=== PATIENT | female | born 1990 | race Caucasian/White ===

== ENCOUNTER 2019-04-09 14:45 | Inpatient (IN) ==
[2019-04-09] MEDS ORDERED: VANCOMYCIN CONSULT ACTIVE PRN ×2 (15:12→18:17)
[2019-04-09] MEDS ORDERED: VANCOMYCIN HCL 2,750 MG in SODIUM CHLORIDE 0.9% 500 ML IV ONE (15:12)
[2019-04-09] MEDS ORDERED: cefTRIAXone SODIUM 2,000 MG in DEXTROSE 5% 50 ML IV STA (15:12)
[2019-04-09] MEDS ORDERED: MoRPHine SULFATE 4 MG/ML 1 ML CARP\\VIAL IV STA (15:36)
--- NOTE | 2019-04-09 15:47 | XRay Report ---
XR chest 1V portable CLINICAL HISTORY: Sepsis COMPARISON STUDY: 02/11/2019 FINDINGS: The cardiac and mediastinal contours are normal. There is no evidence of focal pulmonary co nsolidation. There is no evidence of failure. No pleural effusions are visualized.[ IMPRESSION: No active disease in the chest. Electronically signed by: oTan Mauro M.D. 04/09/2019 3:46 PM
[2019-04-09 16:05] LABS: Partial Thromboplastin Ratio 0.9; Partial Thromboplastin Time 25.4 Seconds (21.0-31.0)
[2019-04-09 16:08] LABS: Alanine Aminotransferase 17 U/L (12-78); Albumin Level 3.4 gm/dl (3.4-5.0); Aspartate Aminotransferase 13 U/L (15-37); BUN Creatinine Ratio 12.8 (10-20); Blood Urea Nitrogen 10 mg/dl (7-18); Carbon Dioxide 26 mmol/L (21-32); Chloride 106 mmol/L (98-107); Creatinine Clr Calc Pharmacy 148.4 ml/min; Est GFR (African American) 117.1; Glucose 107 mg/dl (70-99); Hematocrit (blood only) 37.9 % (37-47); Hemoglobin 12.9 g/dL (12.0-16.0); Mean Corpuscular Volume 81.7 fL (80-100); Platelet Count 91 K/uL (130-400); Potassium 3.3 mmol/L (3.5-5.1); RDW Coefficient of Variation 13.8 % (11.5-14.5); RDW Standard Deviation 41.3 fL (36.4-46.3); Red Blood Count 4.64 M/uL (4.2-5.4); Sodium 139 mmol/L (136-145); White Blood Count 11.99 K/uL (4.8-10.8)
[2019-04-09 16:13] LABS: Albumin Globulin Ratio 0.8 (0.9-2); Alkaline Phosphatase 58 U/L (45-117); Bilirubin,Total 0.7 mg/dl (0.2-1); Globulin 4.2 gm/dl (2.5-4.0); Total Protein 7.6 gm/dl (6.4-8.2); Troponin I < 0.015 ng/ml (0-0.045)
[2019-04-09 16:15] LABS: Basophils # (auto) 0.01 K/uL (0-0.2); Basophils % (auto) 0.1 %; Eosinophils # (auto) 0.05 K/uL (0-0.5); Eosinophils % (auto) 0.4 %; Immature Granulocytes # (auto) 0.02 K/uL (0.00-0.02); Immature Granulocytes % (auto) 0.2 %; Lymphocytes # (auto) 2.05 K/uL (1.2-3.4); Lymphocytes % (auto) 17.1 %; Monocytes # (auto) 0.84 K/uL (0.11-0.59); Neutrophils # (auto) 9.02 K/uL (1.4-6.5); Neutrophils % (auto) 75.2 %
[2019-04-09] MEDS ORDERED: POTASSIUM CHLORIDE 10 MEQ TABCR PO STA (17:27)
--- NOTE | 2019-04-09 17:36 | History & Physical Report ---
Date of Service April 09, 2019 Assessment & Plan (1) Cellulitis: This is a 28-year-old female who has a significant past medical history of pre diabetes and morbid obesity who presents to [facility] ED secondary to right lower extremity cellulitis x2 days. In ED patient had wbc 11.9, H/H 12.9 and 37.9, platelet 91 CMP relatively unremarkable except potassium 3.3, glucose 107 Lactate 1.7 Patient did not meet SIRS/sepsis criteria Blood cultures drawn She was administered broad-spectrum IV antibiotics vancomycin and ceftriaxone Given failed outpatient treatment patient was recommended for admission Admit to med/surg Continue IV vancomycin and ceftriaxone dose per pharmacy gentle IVF NS given cellulitis/tachycardia CBC, BMP, ESR, CRP in a.m. Oxycodone 5 mg every 4 hours as needed for moderate pain; morphine 4 mg IV every 4 hours as needed severe pain No imaging of right lower extremity done at this time; however if no clinical improvement will order RLE x-ray along with venous Doppler Venous Doppler not ordered at this time secondary to patient unable to tolerate secondary to severe pain (2) Thrombocytopenia: per [facility] records low plt present on cbc since 2011 do not see any prior work up Last ER visit 01/2019 had peripheral smear consult which was reviewed would recommend close follow up with outpt provider or referral to hematology (3) Hypokalemia: 20 meq of KCL x1 Repeat BMP in am (4) Prediabetes: Prediabetes per patient Is on metformin as outpt We will hold metformin and monitor blood glucose level If BSG consistently elevated will implement as needed NovoLog Last noted A1c in [facility] 09/2018 5.3 (5) Morbid obesity with BMI of 50.0-59.9, adult: BMI 50.3 encourage lifestyle modifications (6) DVT prophylaxis: pt unable to tolerate SCDS/TEDS given cellulitis Encouraged ambulation monitor closely will not do chemical prophylaxis due to thrombocytopenia but assess need daily Disposition: discharge to home when able Follow up: PCP Dr. Schwartz upon discharge Patient was seen and examined in collaboration with Dr. Dacosta, please see addendum History of Present Illness Chief Complaint: Right lower extremely cellulitis x2 days. Primary Care Provider: Jessica Morgan PA-C This is a 28-year-old female who has a significant past medical history of pre diabetes and morbid obesity who presents to [facility] ED secondary to right lower extremity cellulitis x2 days. Significant other at bedside. She was initially seen in outpatient clinic on 04/08 secondary to redness of right lower extremity that began on Saturday 04/07. She was given IM ceftriaxone 1 g and started on Keflex 500 mg 4 times daily. She return to office today for follow-up and there was worsening of cellulitis therefore she was referred to ER. At office she had elevated temperature of 100.2. She complains of feeling feverish and sweats, diminished appetite, nausea, "excruciating right lower extremity pain." Pain is 10 out of 10. She tried anti-inflammatories without relief. Pain is so severe she is unable to walk or move the right lower leg. She denies any known insect/spider bites. She has history of right lower extremity cellulitis in January 2019 which did require ER visit. She was treated with IM ceftriaxone as well as oral Keflex with improvement of symptoms. She states it is much worse this time. She denies any recent travel. Positive family history of MRSA but no personal history. She denies any lightheadedness, dizziness, syncope, chest pain, shortness with, palpitations, emesis, abdominal pain, diarrhea, change in urination. Her last BM was approximately 3 days ago but overall feels her oral intake has been significantly diminished for the past 2 days. She is passing flatus. Allergies Allergy/AdvReac Type Severity Reaction Status Date / Time No Known Allergies Allergy Verified 04/09/19 15:35 Home Medications Home Medications Medication Instructions Recorded Confirmed Type desogestrel-ethinyl estradiol 1 tab PO DAILY 02/11/19 04/09/19 History [Enskyce] albuterol sulfate 2 puff INHALATION QID PRN 04/09/19 04/09/19 History hmtqziogal-tveaupjohrhnr-kpvg 1 tab PO Q4H PRN 04/09/19 04/09/19 History cephalexin 500 mg PO TID 04/09/19 04/09/19 History fluconazole 150 mg PO DIRECTED 04/09/19 04/09/19 History fluticasone propionate [Flonase 2 spray INTRANASAL DAILY 04/09/19 04/09/19 History Allergy Relief] ketorolac 10 mg PO QID PRN 04/09/19 04/09/19 History metformin 500 mg PO BIDM 04/09/19 04/09/19 History Past Med/Surg History Medical History Morbid obesity with BMI of 50.0-59.9, adult (Chronic) Asthma (Chronic) Thrombocytopenia (Chronic) Cellulitis (Acute) Prediabetes (Chronic) Surgical History No pertinent past surgical history (Chronic) Family History Mother Type 1 diabetes Hypertension Father Alive and well Other No pertinent family history Social History Preferred Language: Tunisian Communication Ability: Effective Visual Impairment: No Limitations Hearing Ability: Normal Beliefs That Will Affect Care: None Current Living Situation: Spouse Other Information That Helps Us Care for You: No Feels Safe at Home: Yes Safety Concerns: Feels Safe At This Time Smoking Status: Never smoker Do You Dip or Chew Tobacco: No Hx Alcohol Use: Yes Hx Substance Use: No Review of Systems Review of Systems: As noted per HPI, 10 systems reviewed and negative unless noted above. Physical Exam Physical Exam: Gen: WD/WN, morbidly obese, female, NAD, sitting up in bed, pleasant, conversing easily Head: Normocephalic, Atraumatic Eyes: Sclera normal, no conjunctival injection, PERRLA, EOMI ENT: Gross hearing intact, normal pharynx, mucous membranes moist Neck: supple, no adenopathy, No JVD, no bruit, Resp: Clear to auscultation b/l, no wheeze, rales, rhonchi. Normal insp/exp effort, no accessory muscle use CV: Regular rate, regular rhythm, no murmur, rub, gallop, or ectopy Abd: Obese abdomen, +BS x 4, soft, nontender, nondistended Musculoskeletal: moves extremities active rom x 4, strength intact, good optimization engineer strength Extremities: Significant right lower extremity edema, erythema, warmth, extending from dorsal aspect of right foot to tibial plateau. Area of hyperp igmentation located pretibially with vesicular-like lesions. No alec fluctuance or purulence or drainage. Left lower extremity exhibits no signs of erythema or swelling. Bilateral pedal pulses are +1 and equal. Significant pain to right lower extremity even with light touch. Decreased ROM to right foot and ankle due to pain. Skin: warm, moist, negative turgor, cap refill < 2sec Neuro: Alert and oriented x 3, speech normal, good mood/affect, cran nerve 2-12 intact grossly : deferred Results & Data Vital Signs (Past 12 Hours) Vital Signs Temp Pulse Resp BP Pulse Ox 04/09/19 16:31 86 26 H 109/63 97 04/09/19 16:02 89 20 140/81 98 04/09/19 15:12 99 04/09/19 14:51 37.0 C 111 H 20 138/80 99 Laboratory Results Short CBC 04/09/19 Range/Units 15:40 WBC 11.99 H (4.8-10.8) K/uL Hgb 12.9 (12.0-16.0) g/dL Hct 37.9 (37-47) % Plt Count 91 L (130-400) K/uL BMP 04/09/19 15:40 Sodium 139 Potassium 3.3 L Chloride 106 Carbon Dioxide 26 BUN 10 Creatinine 0.80 Glucose 107 H Calcium 9.0 Cardiac Enzymes 04/09/19 Range/Units 15:40 Troponin I < 0.015 (0-0.045) ng/ml Liver Function 04/09/19 Range/Units 15:40 Total Bilirubin 0.7 (0.2-1) mg/dl AST 13 L (15-37) U/L ALT 17 (12-78) U/L Alkaline Phosphatase 58 (45-117) U/L Albumin 3.4 (3.4-5.0) gm/dl Diagnostic Findings CXR: IMPRESSION: No active disease in the chest Medications Administered Vancomycin HCl 2,750 mg/ (Sodium Chloride) 555 mls @ 200 mls/hr IV NOW ONE; Protocol Stop: 04/09/19 18:02 Last Admin: 04/09/19 15:47 Dose: 200 mls/hr Documented by: [id number] Discontinued Medications Ceftriaxone Sodium 2,000 mg/ (Dextrose) 70 mls @ 100 mls/hr IV NOW STA Stop: 04/09/19 15:53 Last Infusion: 04/09/19 16:29 Dose: 0 mls/hr Documented by: [id number] Admin: 04/09/19 15:47 Dose: 100 mls/hr Documented by: [id number] Morphine Sulfate (Morphine Sulfate) 4 mg IV NOW STA Stop: 04/09/19 15:37 Last Admin: 04/09/19 15:48 Dose: 4 mg Documented by: [id number] Code Status & VTE Plan Code Status Full Code VTE Prophylaxis Plan VTE Prophylaxis will be ordered: No Reason for no VTE mechanical prophylaxis: Treatment not tolerated (pt with significant RLE pain; unable to tolerate mechanical prophylaxis) Supervising Physician Co-Signing Physician Notes Pt was seen and examined. Agreed with Svitlana MARRERO exam, assessment and Plan. 28-year-old female with past medical history of pre diabetes and morbid obesity presents to [facility] for right lower extremity cellulitis. Failed outpatient therapy with Keflex and received IM rocephin x1. Pt said that 2 weeks ago she had cellulitis in right LE that was treated with oral abx. She said that today right LE erythema and tenderness worsening. Received IV Rocephin and Vanco in the ER. Will continue IV rocephin and will add dapto IV. Blood cx collected in the ER pending. Continue monitor. Please refer to Svitlana documentation for other problems. MD Olesya (1) Cellulitis Laterality: right Site of cellulitis: extremity Site of cellulitis of extremity: lower extremity Qualified Code(s): L03.115 - Cellulitis of right lower limb
--- NOTE | 2019-04-09 17:58 | Emergency Department Note ---
Entered by Mily Coker acting as a scribe for History of Present Illness General Chief complaint: Infection Stated complaint: RT LEG INFECTION Source: patient Mode of arrival: ambulatory Limitations: no limitations History of Present Illness Onset (ago): day(s) 2 Location: lower extremity (right) Severity: similar to prior episodes (cellulitis) Pain Consistency: + other (worsening) Maximum Pain Intensity: 10 Associated symptoms: + fever/chills (The patient complains of a fever of 100.2 ), + rash and + other (The patient denies abdominal pain, diarrhea, tingling, and numbness. ); no chest pain, no nausea/vomiting and no shortness of breath The patient is a 28 year old female with a history of cellulitis who presents to the ED with complaints of a worsening infection that onset 2 days ago. The pat ient complains of right sided leg rash and a fever of 100.2 degrees. She notes that her rash is similar to an episode of cellulitis she had in the past. The patient denies chest pain, shortness of breath, abdominal pain, nausea, vomiting, diarrhea, tingling, and numbness. She denies recent swimming. The patient states that she was prescribed Keflex and Rocephin. No other exacerbating or remitting factors. Home Medications Home Medications Medication Instructions Recorded Confirmed Type desogestrel-ethinyl estradiol 1 tab PO DAILY 02/11/19 04/09/19 History [Enskyce] albuterol sulfate 2 puff INHALATION QID PRN 04/09/19 04/09/19 History pcvvfmvrqr-ebeehsqfbaawi-hhgv 1 tab PO Q4H PRN 04/09/19 04/09/19 History cephalexin 500 mg PO TID 04/09/19 04/09/19 History fluconazole 150 mg PO DIRECTED 04/09/19 04/09/19 History fluticasone propionate [Flonase 2 spray INTRANASAL DAILY 04/09/19 04/09/19 History Allergy Relief] ketorolac 10 mg PO QID PRN 04/09/19 04/09/19 History metformin 500 mg PO BIDM 04/09/19 04/09/19 History Allergies Allergy/AdvReac Type Severity Reaction Status Date / Time No Known Allergies Allergy Verified 04/09/19 15:35 Past Med/Surg History Medical History Asthma (Chronic) Thrombocytopenia (Chronic) Cellulitis (Acute) Prediabetes (Chronic) Surgical History No pertinent past surgical history (Chronic) Family History Mother Type 1 diabetes Hypertension Father Alive and well Other No pertinent family history Social History Preferred Language: Macanese Communication Ability: Effective Visual Impairment: No Limitations Hearing Ability: Normal Beliefs That Will Affect Care: None Current Living Situation: Spouse Other Information That Helps Us Care for You: No Feels Safe at Home: Yes Safety Concerns: Feels Safe At This Time Smoking Status: Never smoker Do You Dip or Chew Tobacco: No Hx Alcohol Use: Yes Hx Substance Use: No Review of Systems See HPI for pertinent positives & negatives. and A total of 10 systems reviewed and were otherwise negative Physical Exam Vital Signs Vital Signs - 24 hr 04/09/19 14:51 04/09/19 15:12 04/09/19 16:02 Temperature 37.0 C Temperature Source Oral Sepsis Recent Fever Within 48 Hours No Sepsis New/Unexplained Change in Mental Status No Sepsis Action Taken by Nursing No Action Required Pulse Rate 111 H 89 Pulse Rate from SpO2 Sensor 89 Respiratory Rate 20 20 Respiratory Depth Normal Blood Pressure 138/80 140/81 Blood Pressure Mean 99 100 Pulse Oximetry 99 99 98 Oxygen Delivery Method Room Air Room Air 04/09/19 16:31 04/09/19 16:32 04/09/19 17:00 Temperature Temperature Source Sepsis Recent Fever Within 48 Hours Sepsis New/Unexplained Change in Mental Status Sepsis Action Taken by Nursing Pulse Rate 86 92 H 95 H Pulse Rate from SpO2 Sensor 86 90 94 H Respiratory Rate 26 H 24 24 Respiratory Depth Blood Pressure 109/63 Blood Pressure Mean 78 Pulse Oximetry 97 98 97 Oxygen Delivery Method 04/09/19 17:09 04/09/19 17:30 04/09/19 17:40 Temperature Temperature Source Sepsis Recent Fever Within 48 Hours Sepsis New/Unexplained Change in Mental Status Sepsis Action Taken by Nursing Pulse Rate 91 H 102 H Pulse Rate from SpO2 Sensor 91 H 100 H Respiratory Rate 19 26 H Respiratory Depth Blood Pressure 119/77 Blood Pressure Mean 91 Pulse Oximetry 98 98 Oxygen Delivery Method Room Air GENERAL: Sitting up in bed, morbidly obese, disheveled, non-toxic. EYE EXAM: Normal conjunctiva. OROPHARYNX: no exudate, no erythema, lips, buccal mucosa, and tongue normal and mucous membranes are moist NECK: supple, no nuchal rigidity, no adenopathy, non-tender LUNGS: Clear to auscultation. Normal chest wall mechanics HEART: Distant murmurs, S1 normal and S2 normal, tachycardic ABDOMEN: abdomen soft, non-tender, normo-active bowel sounds, no masses, no rebound or guarding. BACK: Back is symmetrical on inspection and there is no deformity, no midline tenderness, no CVA tenderness. SKIN: Cellulitis UPPER EXTREMITIES: upper extremities are grossly normal. LOWER EXTREMITIES: Diffuse macular rash on the right 5th digit tracking over the foot to the arch and to the medial malleolus and up the leg. Some raised areas of fluctuance/clear fluid just above the distal ankle, midline with petechial wrapping upward and posteriorly to the mid-calf. Erythema tracking up to the mid knee and just medial to the knee. No crepitus. NEURO EXAM: Normal sensorium, cranial nerves II-XII grossly intact, normal speech, no gross weakness of arms, no gross weakness of legs. Course 1503: Past medical records reviewed. The patient was evaluated in room B7. A complete history and physical examination was performed. 1630: I reviewed the patient's case with Svitlana Claudio. She will evaluate the patient for further management. Consultations Consultation #1: 1630: I reviewed the patient's case with Svitlana Claudio. She will evaluate the patient for further management. Time: 16:30 Administered Medications Vancomycin HCl 2,750 mg/ (Sodium Chloride) 555 mls @ 200 mls/hr IV NOW ONE; Protocol Stop: 04/09/19 18:02 Last Admin: 04/09/19 15:47 Dose: 200 mls/hr Documented by: [id number] Discontinued Medications Ceftriaxone Sodium 2,000 mg/ (Dextrose) 70 mls @ 100 mls/hr IV NOW STA Stop: 04/09/19 15:53 Last Infusion: 04/09/19 16:29 Dose: 0 mls/hr Documented by: [id number] Admin: 04/09/19 15:47 Dose: 100 mls/hr Documented by: [id number] Morphine Sulfate (Morphine Sulfate) 4 mg IV NOW STA Stop: 04/09/19 15:37 Last Admin: 04/09/19 15:48 Dose: 4 mg Documented by: [id number] Potassium Chloride (Klor-Con M10) 20 meq PO NOW STA Stop: 04/09/19 17:28 Last Admin: 04/09/19 17:42 Dose: 20 meq Documented by: [id number] Medical Decision Making Differential Diagnosis Differential diagnosis Contact dermatitis, viral exanthem, urticaria, allergic reaction, Tolentino- Declan syndrome, toxic epidermal necrolysis, erythema multiforme, cellulitis, s cabies, HSV, varicella, zoster, eczema, staph scalded skin syndrome, fungal infection, as well as others were entertained. Medical Records Attestation: I reviewed the patient's medical records. Home Medications Current Medication List: was personally reviewed by me Laboratory Data Attestation: I reviewed the patient's lab results. Result diagrams: 04/09/19 15:40 04/09/19 15:40 Lab Results 04/09/19 04/09/19 04/09/19 Range/Units 15:40 15:40 15:40 WBC 11.99 H (4.8-10.8) K/uL RBC 4.64 (4.2-5.4) M/uL Hgb 12.9 (12.0-16.0) g/dL Hct 37.9 (37-47) % MCV 81.7 (80-100) fL MCH 27.8 (25-34) pg MCHC 34.0 (32-36) g/dL RDW Std Deviation 41.3 (36.4-46.3) fL RDW Coeff of Lucy 13.8 (11.5-14.5) % Plt Count 91 L (130-400) K/uL MPV 13.0 H (7.4-10.4) fL Immature Gran % (Auto) 0.2 % Neut % (Auto) 75.2 % Lymph % (Auto) 17.1 % Mcpherson % (Auto) 7.0 % Eos % (Auto) 0.4 % Baso % (Auto) 0.1 % Immature Gran # (Auto) 0.02 (0.00-0.02) K/uL Neut # (Auto) 9.02 H (1.4-6.5) K/uL Lymph # (Auto) 2.05 (1.2-3.4) K/uL Mcpherson # (Auto) 0.84 H (0.11-0.59) K/uL Eos # (Auto) 0.05 (0-0.5) K/uL Baso # (Auto) 0.01 (0-0.2) K/uL PT 10.0 (9.0-12.0) Seconds INR 1.0 (0.9-1.1) APTT 25.4 (21.0-31.0) Seconds PTT Ratio 0.9 Sodium 139 (136-145) mmol/L Potassium 3.3 L (3.5-5.1) mmol/L Chloride 106 (98-107) mmol/L Carbon Dioxide 26 (21-32) mmol/L Anion Gap 7.0 (3-11) BUN 10 (7-18) mg/dl Creatinine 0.80 (0.6-1.2) mg/dl Est Cr Clr Drug Dosing 148.4 ml/min Est GFR ( Amer) 117.1 Est GFR (Non-Af Amer) 101.0 BUN/Creatinine Ratio 12.8 (10-20) Glucose 107 H (70-99) mg/dl Lactate Calcium 9.0 (8.5-10.1) mg/dl Total Bilirubin 0.7 (0.2-1) mg/dl AST 13 L (15-37) U/L ALT 17 (12-78) U/L Alkaline Phosphatase 58 (45-117) U/L Troponin I < 0.015 (0-0.045) ng/ml Total Protein 7.6 (6.4-8.2) gm/dl Albumin 3.4 (3.4-5.0) gm/dl Globulin 4.2 H (2.5-4.0) gm/dl Albumin/Globulin Ratio 0.8 L (0.9-2) 04/09/19 04/09/19 Range/Units 15:40 17:06 WBC (4.8-10.8) K/uL RBC (4.2-5.4) M/uL Hgb (12.0-16.0) g/dL Hct (37-47) % MCV (80-100) fL MCH (25-34) pg MCHC (32-36) g/dL RDW Std Deviation (36.4-46.3) fL RDW Coeff of Lucy (11.5-14.5) % Plt Count (130-400) K/uL MPV (7.4-10.4) fL Immature Gran % (Auto) % Neut % (Auto) % Lymph % (Auto) % Mcpherson % (Auto) % Eos % (Auto) % Baso % (Auto) % Immature Gran # (Auto) (0.00-0.02) K/uL Neut # (Auto) (1.4-6.5) K/uL Lymph # (Auto) (1.2-3.4) K/uL Mcpherson # (Auto) (0.11-0.59) K/uL Eos # (Auto) (0-0.5) K/uL Baso # (Auto) (0-0.2) K/uL PT (9.0-12.0) Seconds INR (0.9-1.1) APTT (21.0-31.0) Seconds PTT Ratio Sodium (136-145) mmol/L Potassium (3.5-5.1) mmol/L Chloride (98-107) mmol/L Carbon Dioxide (21-32) mmol/L Anion Gap (3-11) BUN (7-18) mg/dl Creatinine (0.6-1.2) mg/dl Est Cr Clr Drug Dosing ml/min Est GFR ( Amer) Est GFR (Non-Af Amer) BUN/Creatinine Ratio (10-20) Glucose (70-99) mg/dl Lactate Cancelled 1.7 Calcium (8.5-10.1) mg/dl Total Bilirubin (0.2-1) mg/dl AST (15-37) U/L ALT (12-78) U/L Alkaline Phosphatase (45-117) U/L Troponin I (0-0.045) ng/ml Total Protein (6.4-8.2) gm/dl Albumin (3.4-5.0) gm/dl Globulin (2.5-4.0) gm/dl Albumin/Globulin Ratio (0.9-2) Imaging Data Radiologist's Impression: Radiology results as stated below per my review and the radiologist's interpretation: XR chest 1V portable CLINICAL HISTORY: Sepsis COMPARISON STUDY: 02/11/2019 FINDINGS: The cardiac and mediastinal contours are normal. There is no evidence of focal pulmonary consolidation. There is no evidence of failure. No pleural effusions are visualized.[ IMPRESSION: No active disease in the chest. Electronically signed by: Toan Mauro M.D. 04/09/2019 3:46 PM Dictated: 04/09/19 1545 Transcribed: 04/09/19 1545 Blood Pressure Blood Pressure Findings: Elevated blood pressure Blood Pressure Disposition: further management by hospitalist MDM Narrative Patient is a 28-year-old female who presents the ER for erythema swelling and tenderness on her right lower extremity. She was seen by her PCP and given IM Rocephin placed on oral Keflex and instructed to follow-up. The erythema is significantly worse and start tracking up her leg. IV was established and blood work was obtained and showed a mild tachycardia. Patient was afebrile but did have a slight low-grade fever as an outpatient. Labs show a leukocytosis of 12,000. No significant anemia. INR is unremarkable. BMP along with LFTs bilirubin and troponin was negative. Patient was given 2 g IV Rocephin due to her weight. She was given IV vancomycin. She is updated bedside. Discussed with the hospitalist patient was admitted for cellulitis of her right lower extremity. Impression & Plan Cellulitis, Hypokalemia Discharge Plan Visit Data Chief Complaint: Infection Stated Complaint: RT LEG INFECTION ED Provider: Geoff Mullen Discharge Problem: Cellulitis, Hypokalemia Patient Disposition: Being Evaluated by Hospitalist Forms Stand Alone Forms: [facility] Prescriptions Prescriptions: No Action desogestrel-ethinyl estradiol [Enskyce] 0.15-0.03 mg tablet 1 tab PO DAILY RF: 0 metformin 500 mg Tablet 500 mg PO BIDM RF: 0 fluconazole 150 mg Tablet 150 mg PO DIRECTED RF: 0 zhhedvtomv-ohlrgpzoblzfq-xhsy 50-325-40 mg Tablet 1 tab PO Q4H PRN (Reason: Headache) RF: 0 ketorolac 10 mg Tablet 10 mg PO QID PRN (Reason: Pain) RF: 0 cephalexin 500 mg capsule 500 mg PO TID RF: 0 albuterol sulfate 90 mcg/actuation HFA aerosol inhaler 2 puff inhalation QID PRN (Reason: Shortness Of Breath Or Wheezing) RF: 0 fluticasone propionate [Flonase Allergy Relief] 50 mcg/actuation [place],Suspension 2 spray INTRANASAL DAILY RF: 0 Referrals Referrals: Jessica Morgan PA-C [Primary Care Provider] - Discharge Problem: Cellulitis Qualifiers: Site of cellulitis: extremity Site of cellulitis of extremity: lower extremity Laterality: right Qualified Code(s): L03.115 - Cellulitis of right lower limb The scribe's documentation has been prepared under my direction and personally reviewed by me in its entirety. I confirm that the note above accurately reflects all work, treatment, procedures, and medical decision making performed by me.
[2019-04-09] MEDS ORDERED: DEXTROSE 50% 50 ML SYRINGE IV PRN (18:17)
[2019-04-09] MEDS ORDERED: MoRPHine SULFATE 4 MG/ML 1 ML CARP\\VIAL IV PRN (18:17)
[2019-04-09] MEDS ORDERED: POLYETHYLENE (MIRALAX) 17 GM PACK PO PRN (18:17)
[2019-04-09] MEDS ORDERED: GLUCOSE 10 TABS/TUBE PO PRN (18:17)
[2019-04-09] MEDS ORDERED: GLUCAGON FOR INJ 1 MG VIAL SQ PRN (18:17)
[2019-04-09] MEDS ORDERED: GLUCOSE 40% GEL 15 GM TUBE PO PRN (18:17)
[2019-04-09] MEDS ORDERED: ALUMINUM/MAGNESIUM SUSP 30 ML UDC PO PRN (18:17)
[2019-04-09] MEDS ORDERED: ACETAMINOPHEN 325 MG TAB PO PRN (18:17)
[2019-04-09] MEDS ORDERED: CARBOHYDRATES FOR HYPOGLYCEMIA PO PRN (18:17)
[2019-04-09] MEDS ORDERED: ALBUTEROL HFA 8 GM INHALER INH PRN (18:17)
[2019-04-09] MEDS ORDERED: MAGNESIUM HYDROXIDE SUSP 30 ML UDC PO PRN (18:17)
[2019-04-09] MEDS ORDERED: ONDANSETRON INJ 2 MG/ML 2 ML VIAL IV PRN (18:17)
[2019-04-09] MEDS ORDERED: DAPTOMYCIN CONSULT ACTIVE PRN (19:20)
[2019-04-09] MEDS: POTASSIUM CHLORIDE 10 MEQ in SODIUM CHLORIDE 0.9% 1000ML 1,000 ML IV SCH (19:21)
[2019-04-09 19:49] LABS: Appearance Urine Turbid (Clear); Bacteria Urine Automated Negative (Negative); Blood Urine Negative (Negative); Color Urine Dark Yellow; Epithelial Cell Urine Auto >30 /lpf (0-5); Glucose Urine UA Negative (Negative); Ketones Urine Trace (Negative); Leukocyte Esterase Urine Trace (Negative); Nitrite Urine Negative (Negative); Protein Urine Trace (Negative); Specific Gravity Urine 1.036 (1.000-1.030); Urobilinogen Urine Negative (Negative); pH Urine 5.5 (4.5-7.5)
[2019-04-09 19:57] LABS: Bilirubin Urine Negative (Negative); Ictotest Urine Negative (Negative)
[2019-04-09 20:13] LABS: Cast Urine Automated 0 /lpf (0-5); Mucus Urine Present (None Prsent)
[2019-04-09] MEDS: DAPTOmycin 375 MG in SYRINGE 0 ML IV SCH (21:24)
[2019-04-10] MEDS: OXYCODONE HCL IR 5 MG TAB (IMMEDIATE RELEASE) PO PRN ×3 (00:27→17:05)
[2019-04-10 07:05] LABS: BUN Creatinine Ratio 13.9 (10-20); C Reactive Protein 14.9 mg/dl (0-0.29); Calcium 8.4 mg/dl (8.5-10.1); Creatinine Clr Calc Pharmacy 160.4 ml/min; Est GFR (African American) 128.7; Hematocrit (blood only) 33.4 % (37-47); Hemoglobin 10.9 g/dL (12.0-16.0); Mean Corpuscular Hgb Conc 32.6 g/dL (32-36); Mean Corpuscular Volume 82.9 fL (80-100); Potassium 3.5 mmol/L (3.5-5.1); RDW Coefficient of Variation 13.8 % (11.5-14.5); Red Blood Count 4.03 M/uL (4.2-5.4); White Blood Count 8.27 K/uL (4.8-10.8)
[2019-04-10 07:11] LABS: Basophils # (auto) 0.01 K/uL (0-0.2); Basophils % (auto) 0.1 %; Eosinophils % (auto) 1.2 %; Giant Platelets 1+; Immature Granulocytes # (auto) 0.02 K/uL (0.00-0.02); Immature Granulocytes % (auto) 0.2 %; Lymphocytes # (auto) 2.64 K/uL (1.2-3.4); Lymphocytes % (auto) 31.9 %; Mean Platelet Volume 13.5 fL (7.4-10.4); Monocytes # (auto) 0.77 K/uL (0.11-0.59); Monocytes % (auto) 9.3 %; Neutrophils # (auto) 4.73 K/uL (1.4-6.5); Neutrophils % (auto) 57.3 %; Platelet Count 90 K/uL (130-400); Platelet Estimate Decreased (Normal)
[2019-04-10] MEDS: POTASSIUM CHLORIDE 10 MEQ in SODIUM CHLORIDE 0.9% 1000ML 1,000 ML IV SCH (07:16)
[2019-04-10] MEDS: cefTRIAXone SODIUM 2,000 MG in DEXTROSE 5% 50 ML IV SCH (09:20)
[2019-04-10] MEDS: FLUTICASONE PROPIONATE NA SPR 16 GM BTL SCH (11:44)
--- NOTE | 2019-04-10 15:10 | Hospitalist Progress Note ---
Date of Service April 10, 2019 Assessment & Plan (1) Cellulitis: Patient is a 28 yr female who with H/O prediabetes, morbid obesity who presents to [facility] ED secondary to right lower extremity cellulitis x2 days. Right Leg Cellulitis Denies any Trauma, Insect bite No signs of Sepsis Failed outpatient Abx therapy Blood cultures:pending Continue IV Daptomycin and ceftriaxone IV fluids Pain control Consider Venous Doppler/X ray if clinically no improvement (2) Thrombocytopenia: Chronic thrombocytopenia: Noted since 2011 Needs further work up as outpatient Monitor CBC No bleeding issues (3) Hypokalemia: Replace electrolytes as needed (4) Prediabetes: Prediabetes per patient On metformin as outpt Hold PO meds Last noted A1c in epic 09/2018 5.3 Consider ISS if BGs elevated (5) Morbid obesity with BMI of 50.0-59.9, adult: BMI 50.3 encourage lifestyle modifications (6) DVT prophylaxis: unable to tolerate SCDS/TEDS given cellulitis Encouraged ambulation No chemical prophylaxis Re: thrombocytopenia Disposition: Expect to discharge home when stable Subjective Patient seen and examined at bedside Complains of right lower extremity swelling, erythema, pain. Denies any chest pain, shortness of breath, dizziness, nausea, abdominal pain Right lower extremity erythema, pain improving No other complaints Review of Systems Review of Systems: All systems reviewed & are unremarkable except as noted in HPI & below Physical Exam Physical Exam: Physical Exam: Vitals signs as noted above General Appearance:Morbidly Obese, no apparent distress Head: normocephalic, Atraumatic Eyes: normal inspection, EOMI Neck: supple, Trachea midline Respiratory/Chest: Normal breath sounds, CTA Cardiovascular: S1, S2, No murmur Abdomen/GI:Soft, Non tender, Bowel sounds present Extremities/Musculoskelatal:normal inspection, RLE swelling, erythema, warmth, vascular lesions noted Neurologic/Psych:AAOX3, grossly no focal neurological deficits Skin: normal color, warm Results & Data Vital Signs (Past 12 Hours) Vital Signs Temp Pulse Resp BP Pulse Ox 04/10/19 14:44 36.8 C 79 18 128/79 98 04/10/19 07:20 37.0 C 77 18 131/78 97 Laboratory Results Short CBC 04/09/19 04/10/19 Range/Units 15:40 05:42 WBC 11.99 H 8.27 (4.8-10.8) K/uL Hgb 12.9 10.9 L (12.0-16.0) g/dL Hct 37.9 33.4 L (37-47) % Plt Count 91 L 90 L (130-400) K/uL BMP 04/09/19 04/10/19 15:40 05:42 Sodium 139 138 Potassium 3.3 L 3.5 Chloride 106 108 H Carbon Dioxide 26 23 BUN 10 10 Creatinine 0.80 0.74 Glucose 107 H 79 Calcium 9.0 8.4 L Cardiac Enzymes 04/09/19 Range/Units 15:40 Troponin I < 0.015 (0-0.045) ng/ml Liver Function 04/09/19 Range/Units 15:40 Total Bilirubin 0.7 (0.2-1) mg/dl AST 13 L (15-37) U/L ALT 17 (12-78) U/L Alkaline Phosphatase 58 (45-117) U/L Albumin 3.4 (3.4-5.0) gm/dl Urine 04/09/19 Range/Units 19:40 Urine Color Dark Yellow Urine Appearance Turbid A (Clear) Urine pH 5.5 (4.5-7.5) Ur Specific [place] 1.036 H (1.000-1.030) Urine Protein Trace H (Negative) Urine Glucose (UA) Negative (Negative) (1) Cellulitis Laterality: right Site of cellulitis: extremity Site of cellulitis of extremity: lower extremity Qualified Code(s): L03.115 - Cellulitis of right lower limb
[2019-04-10] MEDS: DAPTOmycin 375 MG in SYRINGE 0 ML IV SCH (21:07)
[2019-04-11 06:12] LABS: Hematocrit (blood only) 32.4 % (37-47); Hemoglobin 10.6 g/dL (12.0-16.0); Mean Corpuscular Hgb Conc 32.7 g/dL (32-36); Mean Corpuscular Volume 81.4 fL (80-100); Mean Platelet Volume 12.8 fL (7.4-10.4); Platelet Count 112 K/uL (130-400); RDW Coefficient of Variation 13.6 % (11.5-14.5); Red Blood Count 3.98 M/uL (4.2-5.4); White Blood Count 7.16 K/uL (4.8-10.8)
[2019-04-11 06:48] LABS: BUN Creatinine Ratio 11.2 (10-20); Calcium 8.6 mg/dl (8.5-10.1); Creatinine Clr Calc Pharmacy 174.6 ml/min; Est GFR (African American) 138.9; Est GFR (Non-African American) 119.9; Potassium 3.8 mmol/L (3.5-5.1)
[2019-04-11] MEDS: FLUTICASONE PROPIONATE NA SPR 16 GM BTL SCH (09:04)
[2019-04-11] MEDS: cefTRIAXone SODIUM 2,000 MG in DEXTROSE 5% 50 ML IV SCH (09:07)
--- NOTE | 2019-04-11 12:54 | Hospitalist Progress Note ---
Date of Service April 11, 2019 Assessment & Plan (1) Cellulitis: Patient is a 28 yr female who with H/O prediabetes, morbid obesity who presents to [facility] ED secondary to right lower extremity cellulitis x2 days. Right Leg Cellulitis Denies any Trauma, Insect bite No signs of Sepsis Failed outpatient Abx therapy Blood cultures:No growth to date Continue IV Daptomycin and ceftriaxone IV fluids discontinued Pain is controlled Consider Venous Doppler once pain is better Clinically improving (2) Thrombocytopenia: Chronic thrombocytopenia: Noted since 2011 Needs further work up as outpatient Monitor CBC No bleeding issues (3) Hypokalemia: Resolved Replace electrolytes as needed (4) Prediabetes: Prediabetes per patient On metformin as outpt Hold PO meds Last noted A1c in epic 09/2018 5.3 Consider ISS if BGs elevated (5) Morbid obesity with BMI of 50.0-59.9, adult: BMI 50.3 encourage lifestyle modifications (6) DVT prophylaxis: unable to tolerate SCDS/TEDS given cellulitis Encouraged ambulation No chemical prophylaxis Re: thrombocytopenia Disposition: Expect to discharge home when stable Subjective Patient seen and examined at bedside Right leg pain, erythema is improving. No new complaints Afebrile Denies any chest pain, shortness of breath, dizziness, nausea, abdominal pain Review of Systems Review of Systems: All systems reviewed & are unremarkable except as noted in HPI & below Physical Exam Physical Exam: Physical Exam: Vitals signs as noted above General Appearance:Morbidly Obese, no apparent distress Head: normocephalic, Atraumatic Eyes: normal inspection, EOMI Neck: supple, Trachea midline Respiratory/Chest: Normal breath sounds, CTA Cardiovascular: S1, S2, No murmur Abdomen/GI:Soft, Non tender, Bowel sounds present Extremities/Musculoskelatal:normal inspection, RLE swelling, erythema, warmth, vesicular lesions noted Erythema is improving Neurologic/Psych:AAOX3, grossly no focal neurological deficits Skin: normal color, warm Results & Data Vital Signs (Past 12 Hours) Vital Signs Temp Pulse Resp BP Pulse Ox 04/11/19 07:23 36.8 C 69 18 127/68 100 Laboratory Results Short CBC 04/11/19 Range/Units 05:31 WBC 7.16 (4.8-10.8) K/uL Hgb 10.6 L (12.0-16.0) g/dL Hct 32.4 L (37-47) % Plt Count 112 L (130-400) K/uL BMP 04/11/19 05:31 Sodium 143 Potassium 3.8 Chloride 111 H Carbon Dioxide 25 BUN 8 Creatinine 0.68 Glucose 88 Calcium 8.6 (1) Cellulitis Laterality: right Site of cellulitis: extremity Site of cellulitis of extremity: lower extremity Qualified Code(s): L03.115 - Cellulitis of right lower limb
[2019-04-11] MEDS: OXYCODONE HCL IR 5 MG TAB (IMMEDIATE RELEASE) PO PRN ×2 (15:44→22:01)
[2019-04-11] MEDS: DAPTOmycin 375 MG in SYRINGE 0 ML IV SCH (22:02)
[2019-04-11] MEDS ORDERED: POLYETHYLENE (MIRALAX) 17 GM PACK PO PRN (23:42)
[2019-04-11] MEDS ORDERED: POLYETHYLENE (MIRALAX) 17 GM PACK PO STA (23:42)
[2019-04-12] MEDS: DOCUSATE SODIUM/SENNA 50/8.6MG TAB PO SCH ×2 (00:37→08:14)
[2019-04-12 06:35] LABS: Creatinine Clr Calc Pharmacy 162.6 ml/min; Est GFR (African American) 130.8; Est GFR (Non-African American) 112.9
[2019-04-12] MEDS: cefTRIAXone SODIUM 2,000 MG in DEXTROSE 5% 50 ML IV SCH (08:13)
[2019-04-12] MEDS: FLUTICASONE PROPIONATE NA SPR 16 GM BTL SCH (08:14)
[2019-04-12] MEDS ORDERED: PATIENT'S OWN ORAL CONTRACEPTIVE PO SCH (09:00)
--- NOTE | 2019-04-12 09:35 | Ultrasound Report ---
US venous doppler LE BI CLINICAL HISTORY: Lower extremity edema. Sepsis. COMPARISON STUDY: No previous studies for comparison. FINDINGS: Real-time and color flow Doppler imaging were performed. Flow was seen within the femoral, popliteal and calf veins with no intraluminal thrombus demonstrated. The saphenous vein is patent. IMPRESSION: No evidence of lower extremity DVT. Electronically signed by: Toan Mauro M.D. 04/12/2019 9:34 AM
--- NOTE | 2019-04-12 11:11 | Hospitalist Progress Note ---
Date of Service April 12, 2019 Assessment & Plan (1) Cellulitis: Patient is a 28 yr female who with H/O prediabetes, morbid obesity who presents to [facility] ED secondary to right lower extremity cellulitis x2 days. Right Leg Cellulitis Denies any Trauma, Insect bite No signs of Sepsis Failed outpatient Abx therapy Blood cultures:No growth to date for 48 hours Venous Doppler:No evidence of lower extremity DVT. Continue IV Daptomycin and ceftriaxone Day #4 IV fluids discontinued Pain is controlled Clinically improved (2) Thrombocytopenia: Chronic thrombocytopenia: Noted since 2011 Needs further work up as outpatient Monitor CBC No bleeding issues (3) Hypokalemia: Resolved Replace electrolytes as needed (4) Prediabetes: Prediabetes per patient On metformin as outpt Hold PO meds Last noted A1c in [facility] 09/2018 5.3 Consider ISS if BGs elevated (5) Morbid obesity with BMI of 50.0-59.9, adult: BMI 50.3 encourage lifestyle modifications Constipation: Continue bowel regimen (6) DVT prophylaxis: unable to tolerate SCDS/TEDS given cellulitis Encouraged ambulation No chemical prophylaxis Re: thrombocytopenia Disposition: Expect to discharge home when stable Subjective Patient seen and examined at bedside Clinically much improved Less Right leg pain, erythema Encourage to ambulate No other complaints Afebrile Denies any chest pain, shortness of breath, dizziness, nausea, abdominal pain Reports constipation Review of Systems Review of Systems: All systems reviewed & are unremarkable except as noted in HPI & below Physical Exam Physical Exam: Physical Exam: Vitals signs as noted above General Appearance:Morbidly Obese, no apparent distress Head: normocephalic, Atraumatic Eyes: normal inspection, EOMI Neck: supple, Trachea midline Respiratory/Chest: Normal breath sounds, CTA Cardiovascular: S1, S2, No murmur Abdomen/GI:Soft, Non tender, Bowel sounds present Extremities/Musculoskelatal:normal inspection, RLE swelling, erythema improved Neurologic/Psych:AAOX3, grossly no focal neurological deficits Skin: normal color, warm Results & Data Vital Signs (Past 12 Hours) Vital Signs Temp Pulse Resp BP Pulse Ox 04/12/19 11:00 36.9 C 71 18 97/65 L 97 04/12/19 07:00 36.9 C 71 18 97/65 L 97 04/12/19 00:00 37.0 C 79 20 126/84 97 Laboratory Results [facility] 04/12/19 05:45 Creatinine 0.73 (1) Cellulitis Laterality: right Site of cellulitis: extremity Site of cellulitis of extremity: lower extremity Qualified Code(s): L03.115 - Cellulitis of right lower limb
--- NOTE | 2019-04-12 11:40 | Discharge Summary ---
Date of Service April 12, 2019 Admission HPI Per Admitting Provider This is a 28-year-old female who has a significant past medical history of pre diabetes and morbid obesity who presents to [facility] ED secondary to right lower extremity cellulitis x2 days. Significant other at bedside. She was initially seen in outpatient clinic on 04/08 secondary to redness of right lower extremity that began on Saturday 04/07. She was given IM ceftriaxone 1 g and started on Keflex 500 mg 4 times daily. She return to office today for follow-up and there was worsening of cellulitis therefore she was referred to ER. At office she had elevated temperature of 100.2. She compl ains of feeling feverish and sweats, diminished appetite, nausea, "excruciating right lower extremity pain." Pain is 10 out of 10. She tried anti- inflammatories without relief. Pain is so severe she is unable to walk or move the right lower leg. She denies any known insect/spider bites. She has history of right lower extremity cellulitis in January 2019 which did require ER visit. She was treated with IM ceftriaxone as well as oral Keflex with improvement of symptoms. She states it is much worse this time. She denies any recent travel. Positive family history of MRSA but no personal history. She denies any lightheadedness, dizziness, syncope, chest pain, shortness with, palpitations, emesis, abdominal pain, diarrhea, change in urination. Her last BM was approximately 3 days ago but overall feels her oral intake has been significantly diminished for the past 2 days. She is passing flatus. Admission Exam Per Admitting Provider Gen: WD/WN, morbidly obese, female, NAD, sitting up in bed, pleasant, conversing easily Head: Normocephalic, Atraumatic Eyes: Sclera normal, no conjunctival injection, PERRLA, EOMI ENT: Gross hearing intact, normal pharynx, mucous membranes moist Neck: supple, no adenopathy, No JVD, no bruit, Resp: Clear to auscultation b/l, no wheeze, rales, rhonchi. Normal insp/exp eff ort, no accessory muscle use CV: Regular rate, regular rhythm, no murmur, rub, gallop, or ectopy Abd: Obese abdomen, +BS x 4, soft, nontender, nondistended Musculoskeletal: moves extremities active rom x 4, strength intact, good special education associate strength Extremities: Significant right lower extremity edema, erythema, warmth, extending from dorsal aspect of right foot to tibial plateau. Area of hyperpigmentation located pretibially with vesicular-like lesions. No alec fluctuance or purulence or drainage. Left lower extremity exhibits no signs of erythema or swelling. Bilateral pedal pulses are +1 and equal. Significant pain to right lower extremity even with light touch. Decreased ROM to right foot and ankle due to pain. Skin: warm, moist, negative turgor, cap refill < 2sec Neuro: Alert and oriented x 3, speech normal, good mood/affect, cran nerve 2-12 intact grossly : deferred Principal Diagnosis Discharge Information Discharge Diagnosis Right Leg Cellulitis Thrombocytopenia Discharge Goals Decrease discomfort,Improve disease control, Improve function Discharge Activity Limitations Resume your previous activity Discharge Data Allergies Allergy/AdvReac Type Severity Reaction Status Date / Time No Known Allergies Allergy Verified 04/09/19 15:35 Procedures Performed Venous Doppler: No evidence of lower extremity DVT. CXR: No active disease in the chest. Ordered Studies 04/12/19 08:27 US venous doppler LE Routine Hospital Course (1) Cellulitis: Patient is a 28 yr female who with H/O prediabetes, morbid obesity who presents to [facility] ED secondary to right lower extremity cellulitis x2 days. Right Leg Cellulitis Denies any Trauma, Insect bite No signs of Sepsis Failed outpatient Abx therapy Blood cultures:No growth to date for 48 hours Venous Doppler:No evidence of lower extremity DVT. Continue IV Daptomycin and ceftriaxone Day #4 IV fluids discontinued Pain is controlled Clinically improved (2) Thrombocytopenia: Chronic thrombocytopenia: Noted since 2011 Needs further work up as outpatient Monitor CBC No bleeding issues (3) Hypokalemia: Resolved Replace electrolytes as needed (4) Prediabetes: Prediabetes per patient On metformin as outpt Hold PO meds Last noted A1c in [facility] 09/2018 5.3 Consider ISS if BGs elevated (5) Morbid obesity with BMI of 50.0-59.9, adult: BMI 50.3 encourage lifestyle modifications Constipation: Continue bowel regimen (6) DVT prophylaxis: unable to tolerate SCDS/TEDS given cellulitis Encouraged ambulation No chemical prophylaxis Re: thrombocytopenia Disposition: Expect to discharge home when stable Total Time Total Time Spent Total Time Spent (In Minutes): 38 minutes Total Time Includes: Examination of the Patient, Discharge Planning, Medication Reconciliation and Other Discharge Plan Discharge Items Patient Disposition: Home - Self-Care Reason For Visit: CELLUITIS FAILED OUTPT THERAPY Discharge Diagnosis: Right Leg Cellulitis Thrombocytopenia Discharge Goals: Decrease discomfort, Improve disease control and Improve functi on Activity: Resume your previous activity Exercise/Sports: Gradually increase as tolerated Non-emergency contact: Primary Care Provider Call non-emergency contact if: you have any medication questions, your symptoms worsen, your pain is not controlled, your pain is worsening, your pain is unusu al for you, your pain is concerning for you and you have a fever Follow-up/Referrals: Jessica Morgan PA-C [Primary Care Provider] - Diet: Carb Consistent or DM2 and Heart Healthy Addtl Provider Instructions: Follow up with your PCP in 1 week as advised Your Platelet count is noted to be lower than normal. Discuss with your Phy sician for further work up as outpatient Complete the antibiotic course as prescribed Seek immediate medical attention if your symptoms reoccur or worsen Prescriptions: New polyethylene glycol 3350 [Miralax] 17 gram Powder In Packet 17 g PO DAILY PRN (Reason: constipation) 30 Days Qty: 30 RF: 0 docusate sodium [Colace] 100 mg capsule 100 mg PO BID Qty: 30 RF: 0 doxycycline hyclate 100 mg tablet 100 mg PO BID 7 Days Qty: 14 RF: 0 cefdinir 300 mg capsule 300 mg PO BID 7 Days Qty: 14 RF: 0 Continued desogestrel-ethinyl estradiol [Enskyce] 0.15-0.03 mg tablet 1 tab PO DAILY RF: 0 metformin 500 mg Tablet 500 mg PO BIDM RF: 0 fluconazole 150 mg Tablet 150 mg PO DIRECTED RF: 0 cybauaqakd-luccqdnjpvjit-pgzl 50-325-40 mg Tablet 1 tab PO Q4H PRN (Reason: Headache) RF: 0 ketorolac 10 mg Tablet 10 mg PO QID PRN (Reason: Pain) RF: 0 albuterol sulfate 90 mcg/actuation HFA aerosol inhaler 2 puff inhalation QID PRN (Reason: Shortness Of Breath Or Wheezing) RF: 0 fluticasone propionate [Flonase Allergy Relief] 50 mcg/actuation [place],Suspension 2 spray INTRANASAL DAILY RF: 0 Discontinued cephalexin 500 mg capsule 500 mg PO TID RF: 0 Stand-Alone Forms: [facility], Work/School Release (Inpt) Discharge Orders: Discharge Order (Routine); Ordered 04/12/19 Ordered By: Sylvain Olivares Admission Data Admit Date/Time: 04/09/19 17:25 Attending Provider: Sylvain Olivares Admit Provider: Xander Dacosta Primary Care Provider: Jessica Morgan Service: Medical Other Interventions: Discharge Summary Assessment (RN) Last Done: 04/12/19 11:00 DC Date/Time DO NOT enter until pt leaves facility: 04/12/19 13:15
== END 2019-04-12 13:15 | disposition home or self-care (01) | DRG 603 ==
LOC: ED 14:45 → 4E 17:25

== ENCOUNTER 2020-06-10 07:08 | Inpatient (IN) ==
[2020-06-10] MEDS ORDERED: DINOPROSTONE 10 MG INSERT PV ONE (09:05)
[2020-06-10] MEDS ORDERED: LACTATED RINGER'S 1,000 ML IV PRN (09:05)
[2020-06-10] MEDS ORDERED: OXYTOCIN 30 UNITS/500 ML BAG IV PRN (09:05)
[2020-06-10 09:10] LABS: Albumin Level 2.5 gm/dl (3.4-5.0); BUN Creatinine Ratio 13.2 (10-20); Calcium 8.9 mg/dl (8.5-10.1); Creatinine Clr Calc Pharmacy 161.3 ml/min; Est GFR (African American) 123.7; Est GFR (Non-African American) 106.8; INR 0.9 (0.9-1.1); Partial Thromboplastin Ratio 0.8; Partial Thromboplastin Time 22.2 Seconds (21.0-31.0); Potassium 3.5 mmol/L (3.5-5.1)
[2020-06-10 09:13] LABS: Albumin Globulin Ratio 0.7 (0.9-2); Bilirubin,Total 0.3 mg/dl (0.2-1); Globulin 3.4 gm/dl (2.5-4.0); Total Protein 5.9 gm/dl (6.4-8.2)
[2020-06-10 09:24] LABS: Hematocrit (blood only) 37.2 % (37-47); Hemoglobin 12.5 g/dL (12.0-16.0); Mean Corpuscular Hemoglobin 27.7 pg (25-34); Mean Corpuscular Hgb Conc 33.6 g/dL (32-36); Mean Corpuscular Volume 82.5 fL (80-100); Platelet Count 79 K/uL (130-400); RDW Coefficient of Variation 14.2 % (11.5-14.5); RDW Standard Deviation 42.9 fL (36.4-46.3); Red Blood Count 4.51 M/uL (4.2-5.4)
[2020-06-10 09:25] LABS: Basophils # (auto) 0.01 K/uL (0-0.2); Basophils % (auto) 0.1 %; Eosinophils # (auto) 0.01 K/uL (0-0.5); Eosinophils % (auto) 0.1 %; Immature Granulocytes # (auto) 0.12 K/uL (0.00-0.02); Immature Granulocytes % (auto) 0.8 %; Lymphocytes # (auto) 3.26 K/uL (1.2-3.4); Lymphocytes % (auto) 22.6 %; Monocytes # (auto) 1.05 K/uL (0.11-0.59); Monocytes % (auto) 7.3 %; Neutrophils # (auto) 9.95 K/uL (1.4-6.5); Neutrophils % (auto) 69.1 %; Platelet Estimate Decreased (Normal)
--- NOTE | 2020-06-10 10:05 | Obstetrical Progress Note ---
Date of Service June 10, 2020 Assessment & Plan Admission and Anticipated Discharge Date Admission Date: June 10, 2020 Physical Exam Constitutional: WD/WN, vitals as above average body habitus and + morbidly obese Genitourinary: Manual OB Exam: + cervical dilation (closed), + cervical effacement (thick) and + station high OB Exam Monitor Tracing: + external FHT monitor used, + category I and + normal FHT variability Cervidil 10 mg placed vaginally for cervical ripening Results & Data ([facility]) Vital Signs (Past 12 Hours) Vital Signs Temp Pulse Resp BP 06/10/20 09:50 80 118/56 L 06/10/20 07:47 36.9 C 20 06/10/20 07:26 36.9 C 75 20 120/70
[2020-06-11] MEDS: miSOPROStoL 50 MCG TAB PO SCH ×5 (00:01→17:45)
[2020-06-11 07:15] LABS: Hematocrit (blood only) 38.5 % (37-47); Hemoglobin 12.7 g/dL (12.0-16.0); Mean Corpuscular Hemoglobin 27.8 pg (25-34); Mean Corpuscular Volume 84.2 fL (80-100); RDW Coefficient of Variation 14.3 % (11.5-14.5); RDW Standard Deviation 44.4 fL (36.4-46.3); Red Blood Count 4.57 M/uL (4.2-5.4)
[2020-06-11 07:36] LABS: Platelet Count 89 K/uL (130-400)
[2020-06-11 07:37] LABS: Basophils # (auto) 0.01 K/uL (0-0.2); Basophils % (auto) 0.1 %; Eosinophils # (auto) 0.09 K/uL (0-0.5); Eosinophils % (auto) 0.8 %; Immature Granulocytes # (auto) 0.12 K/uL (0.00-0.02); Immature Granulocytes % (auto) 1.1 %; Lymphocytes # (auto) 3.41 K/uL (1.2-3.4); Lymphocytes % (auto) 29.9 %; Monocytes # (auto) 0.95 K/uL (0.11-0.59); Monocytes % (auto) 8.3 %; Neutrophils # (auto) 6.82 K/uL (1.4-6.5); Neutrophils % (auto) 59.8 %; Platelet Estimate Decreased (Normal)
--- NOTE | 2020-06-11 09:58 | History & Physical Report ---
Date of Service June 11, 2020 Assessment & Plan (1) Morbid obesity with BMI of 50.0-59.9, adult: Patient is a 29-year-old G1, P0 at 39 weeks and 5 days of gestation admitted yesterday for induction of labor at term due to morbid obesity, history of thrombocytopenia, chronic ITP, followed by hematology, status post 4 days of Decadron with increasing platelet numbers. Vital signs stable afebrile heart rate reassuring GBS negative Cervix unfavorable Discussed options with continuing with cervical ripening, Cervidil, p.o. Cytotec and Shabazz balloon insertion. Patient is hesitant to have speculum exam with Shabazz balloon. She was told she may not be given epidural due to her low pl atelets numbers. I spoke with anesthesiologist Dr. Sapp, he will come up and talk to the patient about options of pain management. I spoke with Dr. Decker from hematology he was happy with increasing numbers, he stated 89K would be okay for epidural and or and call him if numbers go down. All questions were answered. (2) Thrombocytopenia: (3) Elective induction of labor planned: Admission and Anticipated Discharge Date Admission Date: June 10, 2020 History of Present Illness Primary Care Provider: Jessica Morgan PA-C Patient is seen and examined. Patient feels well no complaints, has been feeling mild and irregular contractions. No leakage of fluid or vaginal bleeding, baby has been moving well. I reviewed her records and she was known to me from office. She was admitted by Dr. Veras yesterday for induction of labor for obesity. Received Cytotec per vagina yesterday and 2 doses of oral Cytotec today. 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, low platelets, from 50 -100K, todays 89K 2) Morbid obesity 3) depression 4) insulin resistance 5) Cellulitis of legs, diffuse rash, PUUPPS Allergies Allergy/AdvReac Type Severity Reaction Status Date / Time No Known Allergies Allergy Verified 06/10/20 08:35 Home Medications Home Medications Medication Instructions Recorded Confirmed Type prenat.vits,valentina,fen-gyyo-mmbms 1 tab PO DAILY 06/10/20 06/10/20 History [ Vitamin] Patient History Medical History Asthma Cellulitis Morbid obesity with BMI of 50.0-59.9, adult Prediabetes Thrombocytopenia Surgical History No pertinent past surgical history Family History Mother Type 1 diabetes Hypertension Father Alive and well Other No pertinent family history Social History Smoking Status: Never smoker Hx Alcohol Use: Yes Hx Substance Use: No Preferred Language: Pakistani Communication Ability: Effective Visual Impairment: No Limitations Hearing Ability: Normal Beliefs That Will Affect Care: None marital status: Current Living Situation: Spouse Other Information That Helps Us Care for You: No Feels Safe at Home: Yes Safety Concerns: Feels Safe At This Time Physical Exam Constitutional: WD/WN, vitals as above well developed, well nourished and + morbidly obese NAD Genitourinary: normal external appearance Manual OB Exam: + cervical dilation fingertip, + cervical effacement 50% and + station high OB Exam Monitor Tracing: + external uterine monitor used and + category I Results & Data ([facility]) Vital Signs (Past 12 Hours) Vital Signs Temp Pulse Resp BP 06/11/20 07:05 37.0 C 60 22 103/56 L 06/11/20 03:26 36.7 C 57 L 18 112/54 L 06/10/20 23:41 37.2 C 85 18 129/64 Laboratory Results Lab Results 06/10/20 06/10/20 06/10/20 Range/Units 08:39 08:39 08:39 WBC 14.40 H (4.8-10.8) K/uL RBC 4.51 (4.2-5.4) M/uL Hgb 12.5 (12.0-16.0) g/dL Hct 37.2 (37-47) % MCV 82.5 (80-100) fL MCH 27.7 (25-34) pg MCHC 33.6 (32-36) g/dL RDW Std Deviation 42.9 (36.4-46.3) fL RDW Coeff of Lucy 14.2 (11.5-14.5) % Plt Count 79 L (130-400) K/uL Immature Gran % (Auto) 0.8 % Neut % (Auto) 69.1 % Lymph % (Auto) 22.6 % [place] % (Auto) 7.3 % Eos % (Auto) 0.1 % Baso % (Auto) 0.1 % Neut # (Auto) 9.95 H (1.4-6.5) K/uL Lymph # (Auto) 3.26 (1.2-3.4) K/uL [place] # (Auto) 1.05 H (0.11-0.59) K/uL Eos # (Auto) 0.01 (0-0.5) K/uL Baso # (Auto) 0.01 (0-0.2) K/uL Immature Gran # (Auto) 0.12 H (0.00-0.02) K/uL Platelet Estimate Decreased L (Normal) PT 10.0 (9.0-12.0) Seconds INR 0.9 (0.9-1.1) APTT 22.2 (21.0-31.0) Seconds PTT Ratio 0.8 Sodium (136-145) mmol/L Potassium (3.5-5.1) mmol/L Chloride (98-107) mmol/L Carbon Dioxide (21-32) mmol/L Anion Gap (3-11) BUN (7-18) mg/dl Creatinine (0.6-1.2) mg/dl Est Cr Clr Drug Dosing ml/min Est GFR ( Amer) Est GFR (Non-Af Amer) BUN/Creatinine Ratio (10-20) Glucose (70-99) mg/dl Calcium (8.5-10.1) mg/dl Total Bilirubin (0.2-1) mg/dl AST (15-37) U/L ALT (12-78) U/L Alkaline Phosphatase (45-117) U/L Total Protein (6.4-8.2) gm/dl Albumin (3.4-5.0) gm/dl Globulin (2.5-4.0) gm/dl Albumin/Globulin Ratio (0.9-2) Blood Type A Positive Antibody Screen NEGATIVE 06/10/20 06/11/20 Range/Units 08:39 06:13 WBC 11.40 H (4.8-10.8) K/uL RBC 4.57 (4.2-5.4) M/uL Hgb 12.7 (12.0-16.0) g/dL Hct 38.5 (37-47) % MCV 84.2 (80-100) fL MCH 27.8 (25-34) pg MCHC 33.0 (32-36) g/dL RDW Std Deviation 44.4 (36.4-46.3) fL RDW Coeff of Lucy 14.3 (11.5-14.5) % Plt Count 89 L (130-400) K/uL Immature Gran % (Auto) 1.1 % Neut % (Auto) 59.8 % Lymph % (Auto) 29.9 % [place] % (Auto) 8.3 % Eos % (Auto) 0.8 % Baso % (Auto) 0.1 % Neut # (Auto) 6.82 H (1.4-6.5) K/uL Lymph # (Auto) 3.41 H (1.2-3.4) K/uL [place] # (Auto) 0.95 H (0.11-0.59) K/uL Eos # (Auto) 0.09 (0-0.5) K/uL Baso # (Auto) 0.01 (0-0.2) K/uL Immature Gran # (Auto) 0.12 H (0.00-0.02) K/uL Platelet Estimate Decreased L (Normal) PT (9.0-12.0) Seconds INR (0.9-1.1) APTT (21.0-31.0) Seconds PTT Ratio Sodium 139 (136-145) mmol/L Potassium 3.5 (3.5-5.1) mmol/L Chloride 107 (98-107) mmol/L Carbon Dioxide 21 (21-32) mmol/L Anion Gap 11.0 (3-11) BUN 10 (7-18) mg/dl Creatinine 0.76 (0.6-1.2) mg/dl Est Cr Clr Drug Dosing 161.3 ml/min Est GFR ( Amer) 123.7 Est GFR (Non-Af Amer) 106.8 BUN/Creatinine Ratio 13.2 (10-20) Glucose 117 H (70-99) mg/dl Calcium 8.9 (8.5-10.1) mg/dl Total Bilirubin 0.3 (0.2-1) mg/dl AST 19 (15-37) U/L ALT 19 (12-78) U/L Alkaline Phosphatase 125 H (45-117) U/L Total Protein 5.9 L (6.4-8.2) gm/dl Albumin 2.5 L (3.4-5.0) gm/dl Globulin 3.4 (2.5-4.0) gm/dl Albumin/Globulin Ratio 0.7 L (0.9-2) Blood Type Antibody Screen
--- NOTE | 2020-06-11 10:20 | Obstetrical Progress Note ---
Date of Service June 11, 2020 Assessment & Plan Admission and Anticipated Discharge Date Admission Date: June 10, 2020 Subjective Bed side US: Vertex FM's seen many times FHR 140's Results & Data ([facility]) Vital Signs (Past 12 Hours) Vital Signs Temp Pulse Resp BP 06/11/20 07:05 37.0 C 60 22 103/56 L 06/11/20 03:26 36.7 C 57 L 18 112/54 L 06/10/20 23:41 37.2 C 85 18 129/64
[2020-06-11] MEDS ORDERED: DINOPROSTONE 10 MG INSERT PV ONE (11:15)
--- NOTE | 2020-06-11 11:16 | Obstetrical Progress Note ---
Date of Service June 11, 2020 Assessment & Plan Admission and Anticipated Discharge Date Admission Date: June 10, 2020 Subjective Patient is seen and examined. Discussed options of either continuing with induction of labor here, checking platelet counts when she needs epidural, or transfer to [facility] which is a tertiary care center. Patient told about all options as we discussed earlier and she decided to stay here and continue with induction of labor. Cervidil is inserted and posterior fornix. heart rate reassuring, category 1. Plan to continue with cervical ripening and monitoring. All questions were answered. Results & Data ([facility]) Vital Signs (Past 12 Hours) Vital Signs Temp Pulse Resp BP 06/11/20 10:30 36.9 C 93 H 20 93/51 L 06/11/20 07:05 37.0 C 60 22 103/56 L 06/11/20 03:26 36.7 C 57 L 18 112/54 L 06/10/20 23:41 37.2 C 85 18 129/64
--- NOTE | 2020-06-11 11:41 | Anesthesiology Progress Note ---
Date of Service June 11, 2020 Assessment & Plan Admission and Anticipated Discharge Date Admission Date: June 10, 2020 Subjective I spoke to the patient in regards to her receiving an epidural. The patient is currently not in labor, and she is comfortable. I spoke to her about the need of having a repeated platelet count prior to receiving an epidural. I told her that we could not advise for or against an epidural until a repeat platelet count was drawn when she requests an epidural. I spoke to her about the risk of developing an epidural hematoma due to her history of ITP. She was understanding. I spoke to Dr. Valdovinos about my conversation with the patient. Physical Exam Vital Signs: Last Vital Signs Temp 98.4 F 06/11/20 10:30 Pulse 93 H 06/11/20 10:30 Resp 20 06/11/20 10:30 BP 93/51 L 06/11/20 10:30 Results & Data ([facility]) Medications Administered Misoprostol (Misoprostol 50 Mcg Tab) 50 mcg PO Q4 TENNIL[place] Stop: 07/11/20 00:00 Last Admin: 06/11/20 06:45 Dose: 50 mcg Documented by: [id number] Admin: 06/11/20 00:01 Dose: 50 mcg Documented by: [id number]
[2020-06-11] MEDS ORDERED: BUTORPHANOL TARTRATE 1 MG/ML VIAL IV PRN (12:00)
[2020-06-11] MEDS ORDERED: FLUCONAZOLE 50 MG TAB PO ONE (12:30)
--- NOTE | 2020-06-11 23:39 | Obstetrical Progress Note ---
Date of Service June 11, 2020 Assessment & Plan Admission and Anticipated Discharge Date Admission Date: June 10, 2020 Subjective Patient is reevaluated [place] mild ctxs earlier and they stopped and they started again but not regular, every 10 min Pain is 4/10 with ctxs, 0 in between No LOF/VB +FM's VSS Afebrile VE: ft/ soft, 50%/ -4, ballotable head, abundant curdy d/c Cervidil is removed FHR categ I [place]: ctxs mild irregular ctxs, q 2-6 min Patient is hungry and likes to eat s/p 2 cervidils and PO Cytotecs with no cervical change Discussed lei balloon, patient declined due to discomfort during vaginal exam Next plan oxytocin, SCD's and AROM when able All questions were answered Results & Data ([facility]) Vital Signs (Past 12 Hours) Vital Signs Temp Pulse Resp BP 06/11/20 19:25 37.4 C 18 06/11/20 19:11 83 133/77 06/11/20 16:53 37.4 C 71 22 120/67 06/11/20 13:02 37.2 C 86 22 117/66
[2020-06-11] MEDS ORDERED: OXYTOCIN 30 UNITS/500 ML BAG IV PRN (23:40)
[2020-06-12] MEDS ORDERED: CEFAZOLIN 3000MG 65 ML IV SCH (06:00)
[2020-06-12 06:40] LABS: Mean Corpuscular Hgb Conc 33.2 g/dL (32-36)
--- NOTE | 2020-06-12 06:42 | Obstetrical Progress Note ---
Date of Service June 12, 2020 Assessment & Plan Admission and Anticipated Discharge Date Admission Date: June 10, 2020 Subjective Patient is reevaluated She has been feeling more crampy, pain is 4/10 No LOF/VB +FM's Discussed Shabazz balloon and she accepted Speculum exam: cervix is visualized, small mucus on the os, 20 Fr Shabazz catheter is placed into canal, 35 ml NS was injected, and it was attached to her medial tight with minimal tension Patient tolerated it well FHR 130's categ I Continue with Pitocin and Shabazz All questions were answered Results & Data ([facility]) Vital Signs (Past 12 Hours) Vital Signs Temp Pulse Resp BP 06/12/20 06:04 37.2 C 06/12/20 05:18 64 110/53 L 06/12/20 04:34 79 132/58 L 06/12/20 04:06 18 06/12/20 03:48 63 106/52 L 06/12/20 03:18 83 106/56 L 06/12/20 02:30 37.2 C 06/12/20 02:20 73 125/68 06/12/20 00:00 36.9 C 06/11/20 23:56 90 138/91 06/11/20 19:25 37.4 C 06/11/20 19:11 83 133/77
[2020-06-12 06:48] LABS: Hematocrit (blood only) 39.8 % (37-47); Hemoglobin 13.2 g/dL (12.0-16.0); Mean Corpuscular Hemoglobin 27.4 pg (25-34); Mean Corpuscular Volume 82.7 fL (80-100); RDW Coefficient of Variation 14.2 % (11.5-14.5); RDW Standard Deviation 42.8 fL (36.4-46.3); Red Blood Count 4.81 M/uL (4.2-5.4); White Blood Count 12.23 K/uL (4.8-10.8)
[2020-06-12] MEDS: miSOPROStoL 50 MCG TAB PO SCH ×5 (07:02→22:53)
[2020-06-12 07:03] LABS: Basophils # (auto) 0.01 K/uL (0-0.2); Basophils % (auto) 0.1 %; Eosinophils # (auto) 0.11 K/uL (0-0.5); Eosinophils % (auto) 0.9 %; Immature Granulocytes # (auto) 0.05 K/uL (0.00-0.02); Immature Granulocytes % (auto) 0.4 %; Lymphocytes # (auto) 2.83 K/uL (1.2-3.4); Lymphocytes % (auto) 23.1 %; Monocytes # (auto) 0.86 K/uL (0.11-0.59); Neutrophils # (auto) 8.37 K/uL (1.4-6.5); Neutrophils % (auto) 68.5 %; Platelet Count 81 K/uL (130-400); Platelet Estimate Decreased (Normal)
[2020-06-12] MEDS: LACTATED RINGER'S 1,000 ML IV SCH ×5 (10:00→20:48)
[2020-06-12] MEDS ORDERED: METHYLPREDNISOLONE IV ONE (10:45)
[2020-06-12] MEDS ORDERED: ONDANSETRON INJ 2 MG/ML 2 ML VIAL IV PRN ×2 (14:44→23:32)
[2020-06-12] MEDS ORDERED: ONDANSETRON INJ 2 MG/ML 2 ML VIAL ONE (14:46)
--- NOTE | 2020-06-12 14:51 | Obstetrical Progress Note ---
Date of Service June 12, 2020 Assessment & Plan Admission and Anticipated Discharge Date Admission Date: June 10, 2020 Subjective Patient is reevaluated I Came to see her at 1150 but she was sleeping after given IV Stadol Dr Decker called me this morning and recommended IV Solumedrol 200 mg once to help to increase platelets It was given 4 hours ago I spoke with anesthesiologist, Dr Flower, who said he would give epidural as long and platelets are stable She has been painful and standing now, to hep with the pain Lab staff is here and drawing CBC now FHR categ I Contractions q 2-3 min, Pitocin is at14 miu/min Hope to give her epidural and AROM Continue to monitor Results & Data ([facility]) Vital Signs (Past 12 Hours) Vital Signs Temp Pulse Resp BP 06/12/20 13:54 95 H 119/83 06/12/20 12:20 77 24 118/66 06/12/20 11:49 74 132/64 06/12/20 11:20 59 L 113/57 L 06/12/20 11:19 37.4 C 24 06/12/20 10:24 75 22 135/61 06/12/20 10:22 78 89/61 L 06/12/20 09:10 82 24 135/66 06/12/20 08:08 63 20 115/56 L 06/12/20 06:59 37.1 C 63 20 117/61 06/12/20 06:04 37.2 C 18 06/12/20 05:18 64 110/53 L 06/12/20 04:34 79 132/58 L 06/12/20 04:06 18 06/12/20 03:48 63 106/52 L 06/12/20 03:18 83 106/56 L
[2020-06-12 15:04] LABS: Mean Corpuscular Hgb Conc 33.6 g/dL (32-36)
[2020-06-12 15:10] LABS: Hematocrit (blood only) 44.6 % (37-47); Mean Corpuscular Hemoglobin 28.2 pg (25-34); Mean Corpuscular Volume 83.8 fL (80-100); RDW Coefficient of Variation 14.1 % (11.5-14.5); RDW Standard Deviation 43.4 fL (36.4-46.3); Red Blood Count 5.32 M/uL (4.2-5.4); White Blood Count 19.04 K/uL (4.8-10.8)
[2020-06-12] MEDS ORDERED: BUPIVACAINE 0.25% 30 ML VIAL ONE (15:11)
[2020-06-12] MEDS ORDERED: ePHEDrine sulfate 50 MG/ML AMP ONE (15:11)
[2020-06-12] MEDS ORDERED: fentaNYL citrate 100 MCG/2 ML VIAL ONE ×2 (15:12→21:41)
[2020-06-12] MEDS ORDERED: fentaNYL 2MCG/ML ROPIV 1.25MG/ML 100 ML BAG EPI ONE (15:12)
[2020-06-12 15:38] LABS: Basophils # (auto) 0.01 K/uL (0-0.2); Basophils % (auto) 0.1 %; Eosinophils # (auto) 0.01 K/uL (0-0.5); Eosinophils % (auto) 0.1 %; Immature Granulocytes # (auto) 0.06 K/uL (0.00-0.02); Immature Granulocytes % (auto) 0.3 %; Lymphocytes # (auto) 1.03 K/uL (1.2-3.4); Lymphocytes % (auto) 5.4 %; Monocytes # (auto) 0.15 K/uL (0.11-0.59); Monocytes % (auto) 0.8 %; Neutrophils # (auto) 17.78 K/uL (1.4-6.5); Neutrophils % (auto) 93.3 %; Platelet Count 90 K/uL (130-400); Platelet Estimate Decreased (Normal)
--- NOTE | 2020-06-12 15:45 | Anesthesiology Consultation ---
Date of Service June 12, 2020 Assessment & Plan Chart Review Chart Review: Acceptable Risk for Surgery, Patient NOT seen in Pre Admission Testing and Acceptable Risk for Labor Epidural Consults Requested none ASA ASA3 Proposed Anesthesia Anesthesia Type: Labor Epidural and CSE Additional Comments: not covid tested History Height/Weight Height: 5 ft 4 in Weight: 149.685 kg Allergies Allergy/AdvReac Type Severity Reaction Status Date / Time No Known Allergies Allergy Verified 06/10/20 08:35 Medications Home Medications Medication Instructions Recorded Confirmed Last Taken prenat.vits,valentina,[id number] 1 tab PO DAILY 06/10/20 06/10/20 06/10/20 06:00 [ Vitamin] Active Medications Generic Name Dose Route Start Last Admin Trade Name Freq PRN Reason Stop Dose Admin Butorphanol Tartrate 2 mg 06/11/20 12:00 06/12/20 11:13 Butorphanol Tartrate 1 Mg/Ml Vial IV 07/11/20 11:59 2 mg Q3HWA PRN Administration Pain Oxytocin 30 units in 500 mls @ 14 mls/hr 06/11/20 23:40 06/12/20 11:54 Pitocin IV 06/13/20 23:39 0.84 units/hr .Q24H PRN 14 mls/hr Labor Induction/Augmentation Titration Protocol 0.84 UNITS/HR Lactated Ringer's 1,000 mls @ 150 mls/hr 06/12/20 09:45 06/12/20 15:19 Lr IV 07/12/20 09:44 999 mls/hr .Q6H40M TENNILLE Administration Misoprostol 50 mcg 06/11/20 00:00 06/12/20 13:15 Misoprostol 50 Mcg Tab PO 07/11/20 00:00 Not Given Q4 TENNILLE Past Medical History Medical History Asthma Cellulitis Morbid obesity with BMI of 50.0-59.9, adult Prediabetes Thrombocytopenia Exercise / Class Metabolic Activity III < 4 Walking/Shop/Light housework Past Family History Family History Mother Type 1 diabetes Hypertension Father Alive and well Other No pertinent family history Past Surgical History Surgical History No pertinent past surgical history Past Anesthesia History No Hx of Anesthesia Complications and No Family Hx of Anesthesia Complications History of PONV No Hx of PONV and No Hx of Motion Sickness Social History Smoking Status: Never smoker Hx Alcohol Use: Yes alcohol intake frequency: other Hx Substance Use: No substance use type: does not use Physical Exam Vital Signs Last Vital Signs Temp 37.4 C 06/12/20 11:19 Pulse 96 H 06/12/20 14:53 Resp 24 06/12/20 12:20 BP 126/80 06/12/20 14:53 Testing Laboratory Results 06/12/20 14:42 06/10/20 08:39 PT 10.0 Seconds (9.0-12.0) 06/10/20 08:39 INR 0.9 (0.9-1.1) 06/10/20 08:39 APTT 22.2 Seconds (21.0-31.0) 06/10/20 08:39 Blood Type A Positive 06/10/20 08:39 Antibody Screen NEGATIVE 06/10/20 08:39
[2020-06-12] MEDS ORDERED: ePHEDrine sulfate 50 MG/ML AMP IV PRN ×3 (16:24→23:32)
[2020-06-12] MEDS ORDERED: METOCLOPRAMIDE HCL 20 MG in SODIUM CHLORIDE 0.9% 50 ML IV PRN (16:24)
[2020-06-12] MEDS ORDERED: NALOXONE HCL 0.4 MG/1 ML VIAL/CARP IV PRN ×3 (16:24→23:32)
[2020-06-12] MEDS ORDERED: DiphenhydrAMINE HCL 50 MG/ML VIAL IV PRN ×3 (16:24→23:32)
[2020-06-12] MEDS ORDERED: fentaNYL 2MCG/ML ROPIV 1.25MG/ML 100 ML BAG EPI PRN (16:24)
[2020-06-12] MEDS ORDERED: NALOXONE HCL 1 MG in SODIUM CHLORIDE 0.9% 1000ML 1,000 ML IV PRN ×4 (16:24→23:32)
[2020-06-12] MEDS ORDERED: PROMETHAZINE HCL 25 MG in SODIUM CHLORIDE 0.9% 50 ML IV PRN ×2 (16:24→23:32)
--- NOTE | 2020-06-12 16:45 | Obstetrical Progress Note ---
Date of Service June 12, 2020 Assessment & Plan Admission and Anticipated Discharge Date Admission Date: June 10, 2020 Subjective Patient is reevaluated She received epidural and comfortable now "Very happy" VE: 7, very stretchable cervix, 90%, large bulging bag, AROM'ed meconium, moderate Head at -2 station FHR categ I [place] ctxs q 2-3 min Continue to monitor Results & Data ([facility]) Vital Signs (Past 12 Hours) Vital Signs Temp Pulse Resp BP Pulse Ox 06/12/20 16:38 70 126/58 L 95 06/12/20 16:36 58 L 94 06/12/20 16:33 66 125/58 L 99 06/12/20 16:30 96 H 126/58 L 06/12/20 16:28 98 H 99 06/12/20 16:27 84 121/58 L 06/12/20 16:25 79 122/60 06/12/20 16:23 84 98 06/12/20 16:22 85 115/56 L 06/12/20 16:18 104 H 97 06/12/20 16:13 105 H 96 06/12/20 16:12 110 H 91 06/12/20 16:08 93 H 98 06/12/20 16:03 104 H 97 06/12/20 16:02 93 H 155/63 H 06/12/20 15:58 96 H 98 06/12/20 15:53 84 95 06/12/20 15:48 84 97 06/12/20 15:43 89 98 06/12/20 14:53 96 H 126/80 06/12/20 13:54 95 H 119/83 06/12/20 12:20 77 24 118/66 06/12/20 11:49 74 132/64 06/12/20 11:20 59 L 113/57 L 06/12/20 11:19 37.4 C 24 06/12/20 10:24 75 22 135/61 06/12/20 10:22 78 89/61 L 06/12/20 09:10 82 24 135/66 06/12/20 08:08 63 20 115/56 L 06/12/20 06:59 37.1 C 63 20 117/61 06/12/20 06:04 37.2 C 18 06/12/20 05:18 64 110/53 L
--- NOTE | 2020-06-12 21:05 | Obstetrical Progress Note ---
Date of Service June 12, 2020 Assessment & Plan Admission and Anticipated Discharge Date Admission Date: June 10, 2020 Subjective Patient is reevaluated She feels a lot of pressure in vagina State "she is done" Nursing unable to drain bladder with straight cath neither Lei catheter and the y removed Lei due to patients discomfort Thye noted thick meconium FHR categ I [place] ctxs q 1-3 min, Pitocin was increased to 20 miu/min VE: 6/ 90%/ -2, coned head, high, direct OP, IUP was placed and then lei catheter was inserted Bed side US: eye balls seen under anterior wall, direct OP Discussed the findings above and explained about OP which may take longer to descend and push in second stage Patient is leaning towards Ceserean section I explained the risks and she needs some pain relief now Nursing adjusted the epidural settings and patient was turned to her right side this time. Continue to monitor closely Results & Data ([facility]) Vital Signs (Past 12 Hours) Vital Signs Temp Pulse Resp BP Pulse Ox 06/12/20 20:58 62 98 06/12/20 20:53 58 L 98 06/12/20 20:48 59 L 98 06/12/20 20:44 55 L 131/81 06/12/20 20:43 57 L 99 06/12/20 20:38 60 100 06/12/20 20:33 60 99 06/12/20 20:28 65 143/72 H 95 06/12/20 20:23 64 96 06/12/20 20:18 63 97 06/12/20 20:15 61 130/59 L 06/12/20 20:13 60 97 06/12/20 20:08 58 L 98 06/12/20 20:03 69 97 06/12/20 20:00 18 06/12/20 19:59 54 L 142/65 H 06/12/20 19:58 55 L 98 06/12/20 19:53 53 L 96 06/12/20 19:48 55 L 97 06/12/20 19:44 89 125/73 06/12/20 19:43 64 97 06/12/20 19:38 53 L 97 06/12/20 19:33 50 L 96 06/12/20 19:30 55 L 139/69 06/12/20 19:28 54 L 95 06/12/20 19:23 56 L 96 06/12/20 19:18 60 99 06/12/20 19:16 81 136/81 06/12/20 19:13 65 99 06/12/20 19:09 37.6 C H 18 06/12/20 19:08 55 L 98 06/12/20 19:03 62 100 06/12/20 18:59 78 140/86 06/12/20 18:58 80 99 06/12/20 18:57 85 142/91 H 06/12/20 18:53 62 98 06/12/20 18:48 63 99 06/12/20 18:43 64 98 06/12/20 18:38 79 99 06/12/20 18:33 87 96 06/12/20 18:28 37.3 C 51 L 20 127/65 95 06/12/20 18:23 50 L 94 06/12/20 18:18 52 L 93 06/12/20 18:13 56 L 129/68 94 06/12/20 18:08 51 L 94 06/12/20 18:03 50 L 93 06/12/20 17:59 50 L 124/66 06/12/20 17:58 50 L 94 06/12/20 17:53 50 L 93 06/12/20 17:48 51 L 94 06/12/20 17:44 48 L 126/63 06/12/20 17:43 52 L 96 06/12/20 17:38 59 L 96 06/12/20 17:33 61 98 06/12/20 17:29 55 L 124/58 L 06/12/20 17:28 56 L 97 06/12/20 17:23 54 L 94 06/12/20 17:18 57 L 94 06/12/20 17:14 52 L 18 119/58 L 06/12/20 17:13 51 L 94 06/12/20 17:12 53 L 94 06/12/20 17:08 51 L 96 06/12/20 17:03 54 L 96 06/12/20 17:00 55 L 119/57 L 06/12/20 16:59 58 L 90 06/12/20 16:58 60 99 06/12/20 16:53 57 L 98 06/12/20 16:48 69 99 06/12/20 16:43 82 97 06/12/20 16:42 68 91 06/12/20 16:38 70 126/58 L 95 06/12/20 16:36 58 L 94 06/12/20 16:33 66 125/58 L 99 06/12/20 16:30 96 H 126/58 L 06/12/20 16:28 98 H 99 06/12/20 16:27 84 121/58 L 06/12/20 16:25 79 122/60 06/12/20 16:23 84 98 06/12/20 16:22 37.3 C 85 20 115/56 L 06/12/20 16:18 104 H 97 06/12/20 16:13 105 H 96 06/12/20 16:12 110 H 91 06/12/20 16:08 93 H 98 06/12/20 16:03 104 H 97 06/12/20 16:02 93 H 155/63 H 06/12/20 15:58 96 H 98 06/12/20 15:53 84 95 06/12/20 15:48 84 97 06/12/20 15:43 89 98 06/12/20 14:53 96 H 126/80 06/12/20 13:54 95 H 119/83 06/12/20 12:20 77 24 118/66 06/12/20 11:49 74 132/64 06/12/20 11:20 59 L 113/57 L 06/12/20 11:19 37.4 C 24 06/12/20 10:24 75 22 135/61 06/12/20 10:22 78 89/61 L 06/12/20 09:10 82 24 135/66
[2020-06-12] MEDS ORDERED: AZITHROMYCIN 500 MG in DEXTROSE 5% 250 ML IV STA (21:20)
--- NOTE | 2020-06-12 21:23 | Obstetrical Progress Note ---
Date of Service June 12, 2020 Assessment & Plan Admission and Anticipated Discharge Date Admission Date: June 10, 2020 Subjective Patient and are asking for Ceserean section Patient states she is done and she can not tolerate labor anymore Discussed Csection is a major surgery with risks of infection, bleeding, injury to surrounding organs like bowels bladder, ureters, blood cloths in legs, lungs, wound infection, blood transfusion She understands all and signed an informed consent AP: 39 yo at 39.4 wks, IOL for morbid obesity since 06/10 am, s/p 2 Cervidils, Cytotec, Shabazz baloon and IV pitocin for over 20 hours, no change, meconium stained amniotic fluid, direct OP position of head Patient desires Ceserean section declines trial of labor Understands the risks and benefits and signed an informed consent All questions were answered Results & Data ([facility]) Vital Signs (Past 12 Hours) Vital Signs Temp Pulse Resp BP Pulse Ox 06/12/20 21:15 76 131/74 88 L 06/12/20 21:13 70 98 06/12/20 21:08 58 L 99 06/12/20 21:03 61 99 06/12/20 21:00 18 06/12/20 20:59 56 L 139/64 06/12/20 20:58 62 98 06/12/20 20:53 58 L 98 06/12/20 20:48 59 L 98 06/12/20 20:44 55 L 131/81 06/12/20 20:43 57 L 99 06/12/20 20:38 60 100 06/12/20 20:33 60 99 06/12/20 20:30 18 06/12/20 20:28 65 143/72 H 95 06/12/20 20:23 64 96 06/12/20 20:18 63 97 06/12/20 20:15 61 130/59 L 06/12/20 20:13 60 97 06/12/20 20:08 58 L 98 06/12/20 20:03 69 97 06/12/20 20:00 18 06/12/20 19:59 54 L 142/65 H 06/12/20 19:58 55 L 98 06/12/20 19:53 53 L 96 06/12/20 19:48 55 L 97 06/12/20 19:44 89 125/73 06/12/20 19:43 64 97 06/12/20 19:38 53 L 97 06/12/20 19:33 50 L 96 06/12/20 19:30 55 L 139/69 06/12/20 19:28 54 L 95 06/12/20 19:23 56 L 96 06/12/20 19:18 60 99 06/12/20 19:16 81 136/81 06/12/20 19:13 65 99 06/12/20 19:09 37.6 C H 18 06/12/20 19:08 55 L 98 06/12/20 19:03 62 100 06/12/20 18:59 78 140/86 06/12/20 18:58 80 99 06/12/20 18:57 85 142/91 H 06/12/20 18:53 62 98 06/12/20 18:48 63 99 06/12/20 18:43 64 98 06/12/20 18:38 79 99 06/12/20 18:33 87 96 06/12/20 18:28 37.3 C 51 L 20 127/65 95 06/12/20 18:23 50 L 94 06/12/20 18:18 52 L 93 06/12/20 18:13 56 L 129/68 94 06/12/20 18:08 51 L 94 06/12/20 18:03 50 L 93 06/12/20 17:59 50 L 124/66 06/12/20 17:58 50 L 94 06/12/20 17:53 50 L 93 06/12/20 17:48 51 L 94 06/12/20 17:44 48 L 126/63 06/12/20 17:43 52 L 96 06/12/20 17:38 59 L 96 06/12/20 17:33 61 98 06/12/20 17:29 55 L 124/58 L 06/12/20 17:28 56 L 97 06/12/20 17:23 54 L 94 06/12/20 17:18 57 L 94 06/12/20 17:14 52 L 18 119/58 L 06/12/20 17:13 51 L 94 06/12/20 17:12 53 L 94 06/12/20 17:08 51 L 96 06/12/20 17:03 54 L 96 06/12/20 17:00 55 L 119/57 L 06/12/20 16:59 58 L 90 06/12/20 16:58 60 99 06/12/20 16:53 57 L 98 06/12/20 16:48 69 99 06/12/20 16:43 82 97 06/12/20 16:42 68 91 06/12/20 16:38 70 126/58 L 95 06/12/20 16:36 58 L 94 06/12/20 16:33 66 125/58 L 99 06/12/20 16:30 96 H 126/58 L 06/12/20 16:28 98 H 99 06/12/20 16:27 84 121/58 L 06/12/20 16:25 79 122/60 06/12/20 16:23 84 98 06/12/20 16:22 37.3 C 85 20 115/56 L 06/12/20 16:18 104 H 97 06/12/20 16:13 105 H 96 06/12/20 16:12 110 H 91 06/12/20 16:08 93 H 98 06/12/20 16:03 104 H 97 06/12/20 16:02 93 H 155/63 H 06/12/20 15:58 96 H 98 06/12/20 15:53 84 95 06/12/20 15:48 84 97 06/12/20 15:43 89 98 06/12/20 14:53 96 H 126/80 06/12/20 13:54 95 H 119/83 06/12/20 12:20 77 24 118/66 06/12/20 11:49 74 132/64 06/12/20 11:20 59 L 113/57 L 06/12/20 11:19 37.4 C 24 06/12/20 10:24 75 22 135/61 06/12/20 10:22 78 89/61 L
[2020-06-12] MEDS ORDERED: CITRIC ACID/SODIUM CITRATE 15 ML UDC ONE (21:27)
[2020-06-12] MEDS ORDERED: OXYTOCIN 10 UNITS/ML VIAL ONE ×2 (21:40→22:34)
[2020-06-12] MEDS ORDERED: LIDOCAINE/EPINEPHRINE 2% 1:200,000 20 ML SDV ONE (21:41)
[2020-06-12 21:53] LABS: Hematocrit (blood only) 40.3 % (37-47); Hemoglobin 13.6 g/dL (12.0-16.0); Mean Corpuscular Hemoglobin 28.3 pg (25-34); White Blood Count 18.22 K/uL (4.8-10.8)
[2020-06-12 22:10] LABS: Mean Corpuscular Hgb Conc 33.7 g/dL (32-36); Platelet Count 91 K/uL (130-400)
[2020-06-12 22:11] LABS: Basophils # (auto) 0.01 K/uL (0-0.2); Basophils % (auto) 0.1 %; Immature Granulocytes # (auto) 0.05 K/uL (0.00-0.02); Immature Granulocytes % (auto) 0.3 %; Lymphocytes # (auto) 1.11 K/uL (1.2-3.4); Lymphocytes % (auto) 6.1 %; Monocytes # (auto) 0.94 K/uL (0.11-0.59); Monocytes % (auto) 5.2 %; Neutrophils # (auto) 16.11 K/uL (1.4-6.5); Neutrophils % (auto) 88.3 %; Platelet Estimate Decreased (Normal)
[2020-06-12] MEDS ORDERED: MoRPHine SULFATE PF 1 MG/ML 10 ML AMP/VIAL ONE (22:39)
--- NOTE | 2020-06-12 23:22 | Post Operative Brief Note ---
Immediate Post Op Note v1 Date of Surgery June 12, 2020 Pre & Post Diagnosis Operation Date: 06/12/20 21:20 <No data on this case meets the specified criteria> I identified the patient and participated in the time-out.: Yes Procedure Operation Date: 06/12/20 21:20 <No data on this case meets the specified criteria\ Primary LTCS Surgeon Duglas Greene MD Roll Grinder Dr Young Estimated Blood Loss 800 Findings Consistent with Post-Op Diagnosis Drains Shabazz Catheter Anesthesia Type Labor Epidural Complications none Disposition Accompanied Patient To Recovery: Yes Disposition: L&D
[2020-06-12] MEDS ORDERED: SENNA 8.6 MG TAB PO PRN (23:23)
[2020-06-12] MEDS ORDERED: HYDROCORTISONE ACETATE 25 MG SUPP PR PRN (23:23)
[2020-06-12] MEDS ORDERED: ACETAMINOPHEN 325 MG TAB PO PRN (23:23)
[2020-06-12] MEDS ORDERED: MEASLES, MUMPS & RUBELLA VIRUS VIAL SQ ONE (23:23)
[2020-06-12] MEDS ORDERED: METHYLERGONOVINE MALEATE 0.2 MG/ML AMP IM STA (23:23)
[2020-06-12] MEDS ORDERED: MAGNESIUM HYDROXIDE SUSP 30 ML UDC PO PRN (23:23)
[2020-06-12] MEDS ORDERED: DIPHTHERIA/TETANUS/PERTUSSIS 0.5 ML SYR/VIAL IM ONE (23:23)
[2020-06-12] MEDS ORDERED: BENZOCAINE 20% AER SPR 82.5 GM CAN EXT PRN (23:23)
[2020-06-12] MEDS ORDERED: ACETAMINOPHEN 1000 MG/100 ML IV IV PRN (23:23)
[2020-06-12] MEDS ORDERED: SUPERCREAM 0.870% 15 GM JAR EXT PRN (23:23)
[2020-06-12] MEDS ORDERED: LACTATED RINGER'S 1,000 ML IV SCH (23:30)
[2020-06-12] MEDS ORDERED: OXYTOCIN 20 UNITS in D5W AND LACTATED RINGERS 1,000 ML IV SCH (23:30)
[2020-06-12] MEDS ORDERED: LACTATED RINGER'S 500 ML IV PRN ×2 (23:32)
[2020-06-12] MEDS ORDERED: MoRPHine SULFATE PF 1 MG/ML 10 ML AMP/VIAL EPI ONE (23:32)
[2020-06-12] MEDS ORDERED: NALOXONE HCL 0.08 MG in SYRINGE 1.8 ML IV PRN (23:32)
[2020-06-12] MEDS ORDERED: MoRPHine SULFATE PF 1 MG/ML 10 ML AMP/VIAL INT SPINAL ONE (23:32)
--- NOTE | 2020-06-12 23:35 | Anesthesia Procedure Note ---
Date of Service June 12, 2020 Anesthesia Post Epidural Note Vital Signs Vital Signs: Temp Pulse Resp BP Pulse Ox 37.6 C H 93 H 18 134/63 91 06/12/20 21:01 06/12/20 23:33 06/12/20 21:56 06/12/20 23:29 06/12/20 23:33 Pain Intensity Lower Abdomen: Pain Intensity: 2 Notes Mental Status: alert / awake / arousable Nausea / Vomiting: adequately controlled Pain: adequately controlled Airway Patency, RR, SpO2: stable & adequate BP & HR: stable & adequate Hydration State: stable & adequate Neuraxial Anesthesia: was administered and sensory block is resolving Anesthetic Complications: no major complications apparent Epidural: Removed without complications and With tip intact
--- NOTE | 2020-06-12 23:36 | Anesthesiology Progress Note ---
Date of Service June 12, 2020 Anesthesia Post Procedure Vital Signs Vital Signs: Temp Pulse Resp BP Pulse Ox 06/12/20 23:33 93 H 91 06/12/20 23:31 103 H 100 06/12/20 23:29 104 H 134/63 06/12/20 22:00 98 H 144/88 H 92 06/12/20 21:57 96 H 77 L 06/12/20 21:56 18 06/12/20 21:54 85 142/89 H 90 06/12/20 21:52 82 97 06/12/20 21:48 71 99 06/12/20 21:43 84 98 06/12/20 21:38 69 98 06/12/20 21:33 67 99 06/12/20 21:30 18 06/12/20 21:28 62 99 06/12/20 21:23 94 H 98 06/12/20 21:18 70 99 06/12/20 21:15 76 131/74 88 L 06/12/20 21:13 70 98 06/12/20 21:08 58 L 99 06/12/20 21:03 61 99 06/12/20 21:01 37.6 C H 06/12/20 21:00 18 06/12/20 20:59 56 L 139/64 06/12/20 20:58 62 98 06/12/20 20:53 58 L 98 06/12/20 20:48 59 L 98 06/12/20 20:44 55 L 131/81 06/12/20 20:43 57 L 99 06/12/20 20:38 60 100 06/12/20 20:33 60 99 06/12/20 20:30 18 06/12/20 20:28 65 143/72 H 95 06/12/20 20:23 64 96 06/12/20 20:18 63 97 06/12/20 20:15 61 130/59 L 06/12/20 20:13 60 97 06/12/20 20:08 58 L 98 06/12/20 20:03 69 97 06/12/20 20:00 18 06/12/20 19:59 54 L 142/65 H 06/12/20 19:58 55 L 98 06/12/20 19:53 53 L 96 06/12/20 19:48 55 L 97 06/12/20 19:44 89 125/73 08/23/20 19:43 64 97 06/12/20 19:38 53 L 97 06/12/20 19:33 50 L 96 06/12/20 19:30 55 L 139/69 06/12/20 19:28 54 L 95 06/12/20 19:23 56 L 96 06/12/20 19:18 60 99 06/12/20 19:16 81 136/81 06/12/20 19:13 65 99 06/12/20 19:09 37.6 C H 18 06/12/20 19:08 55 L 98 06/12/20 19:03 62 100 06/12/20 18:59 78 140/86 06/12/20 18:58 80 99 06/12/20 18:57 85 142/91 H 06/12/20 18:53 62 98 06/12/20 18:48 63 99 06/12/20 18:43 64 98 06/12/20 18:38 79 99 06/12/20 18:33 87 96 06/12/20 18:28 37.3 C 51 L 20 127/65 95 06/12/20 18:23 50 L 94 06/12/20 18:18 52 L 93 06/12/20 18:13 56 L 129/68 94 06/12/20 18:08 51 L 94 06/12/20 18:03 50 L 93 06/12/20 17:59 50 L 124/66 06/12/20 17:58 50 L 94 06/12/20 17:53 50 L 93 06/12/20 17:48 51 L 94 06/12/20 17:44 48 L 126/63 06/12/20 17:43 52 L 96 06/12/20 17:38 59 L 96 06/12/20 17:33 61 98 06/12/20 17:29 55 L 124/58 L 06/12/20 17:28 56 L 97 06/12/20 17:23 54 L 94 06/12/20 17:18 57 L 94 06/12/20 17:14 52 L 18 119/58 L 06/12/20 17:13 51 L 94 06/12/20 17:12 53 L 94 06/12/20 17:08 51 L 96 06/12/20 17:03 54 L 96 06/12/20 17:00 55 L 119/57 L 06/12/20 16:59 58 L 90 06/12/20 16:58 60 99 06/12/20 16:53 57 L 98 06/12/20 16:48 69 99 06/12/20 16:43 82 97 06/12/20 16:42 68 91 06/12/20 16:38 70 126/58 L 95 06/12/20 16:36 58 L 94 06/12/20 16:33 66 125/58 L 99 06/12/20 16:30 96 H 126/58 L 06/12/20 16:28 98 H 99 06/12/20 16:27 84 121/58 L 06/12/20 16:25 79 122/60 06/12/20 16:23 84 98 06/12/20 16:22 37.3 C 85 20 115/56 L 06/12/20 16:18 104 H 97 06/12/20 16:13 105 H 96 06/12/20 16:12 110 H 91 06/12/20 16:08 93 H 98 06/12/20 16:03 104 H 97 06/12/20 16:02 93 H 155/63 H 06/12/20 15:58 96 H 98 06/12/20 15:53 84 95 06/12/20 15:48 84 97 06/12/20 15:43 89 98 06/12/20 14:53 96 H 126/80 06/12/20 13:54 95 H 119/83 06/12/20 12:20 77 24 118/66 06/12/20 11:49 74 132/64 06/12/20 11:20 59 L 113/57 L 06/12/20 11:19 37.4 C 24 06/12/20 10:24 75 22 135/61 06/12/20 10:22 78 89/61 L 06/12/20 09:10 82 24 135/66 06/12/20 08:08 63 20 115/56 L 06/12/20 06:59 37.1 C 63 20 117/61 06/12/20 06:04 37.2 C 18 06/12/20 05:18 64 110/53 L 06/12/20 04:34 79 132/58 L 06/12/20 04:06 18 06/12/20 03:48 63 106/52 L 06/12/20 03:18 83 106/56 L 06/12/20 02:30 37.2 C 06/12/20 02:20 73 125/68 06/12/20 00:00 36.9 C 06/11/20 23:56 90 138/91 Pain Intensity Lower Abdomen: Pain Intensity: 2 Transfer of Care Handoff Completed per policy Notes Mental Status: alert / awake / arousable Patient Amnestic to Procedure: Yes Nausea / Vomiting: adequately controlled Pain: adequately controlled Airway Patency, RR, SpO2: stable & adequate BP & HR: stable & adequate Hydration State: stable & adequate Neuraxial Anesthesia: was administered and sensory block is resolving Anesthetic Complications: no major complications apparent
[2020-06-12] MEDS ORDERED: METHYLERGONOVINE MALEATE 0.2 MG/ML AMP ONE (23:39)
[2020-06-12] MEDS ORDERED: DC INTRASPINAL MORPHINE SCH ×2 (23:45)
[2020-06-12] MEDS ORDERED: SODIUM CHLORIDE 0.9% 1000ML 1,000 ML IV SCH ×2 (23:45)
[2020-06-12] MEDS ORDERED: NO NARCOTICS OR SEDATIVES SCH ×2 (23:45)
[2020-06-12] MEDS: OXYTOCIN 30 UNITS in LACTATED RINGER'S 1,000 ML IV SCH (23:54)
--- NOTE | 2020-06-13 03:57 | Operative Report (OR) ---
DATE OF OPERATION: 06/12/2020 PREOPERATIVE DIAGNOSES: The patient is a 29-year-old G1, P0 at 39 weeks and 4 days of gestation, complicated by chronic ITP ( idiopathic thrombocytopenic purpura) with low platelets, morbid obesity, diffuse skin rash, lower extremity edema. Induction of labor for 3 days. Arrest of dilatation at active stage of labor. Thick meconium stained amniotic fluid. Occiput posterior position. POSTOPERATIVE DIAGNOSES: The patient is a 29-year-old G1, P0 at 39 weeks and 4 days of gestation, complicated by chronic ITP ( idiopathic thrombocytopenic purpura) with low platelets, morbid obesity, diffuse skin rash, lower extremity edema. Induction of labor for 3 days. Arrest of dilatation at active stage of labor. Thick meconium stained amniotic fluid. Occiput posterior position. PROCEDURE: Primary low transverse with Pfannenstiel skin incision. SURGEON: Duglas Greene MD [employer] SERVER: Lidia Young MD ESTIMATED BLOOD LOSS: 800 mL. DRAINS: Shabazz catheter drained 150 mL of urine. INTRAVENOUS FLUIDS: 600 mL of lactated Ringer. ANESTHESIA: Epidural. ANESTHESIOLOGIST: Dr. Ghotra. COMPLICATIONS: None. FINDINGS: Baby was a viable male delivered at 2229 hours. Apgars 9/9, weight was 3545 grams. Baby was in direct occiput posterior position with nuchal cord around the neck and body. Maternal findings: Normal uterus, fallopian tubes, and ovaries. DESCRIPTION OF PROCEDURE: The patient was taken to the operating room where epidural anesthesia was found to be adequate. She was placed in dorsal supine position with a leftward tilt. She was prepared and draped in usual sterile fashion. A Pfannenstiel skin incision was made, carried through to the underlying layer of fascia with the Bovie. Fascia was incised in the midline and incision was extended laterally with the help of Wiggins scissors. Upper aspect of the fascial incision was grasped with 2 Calderon clamps, elevated. Underlying rectus muscles were dissected off sharply with Wiggins scissors. The lower aspect of the fascial incision was then grasped with 2 Calderon clamps, elevated, underlying rectus muscles were dissected off sharply with Wiggins scissors. Rectus muscles were in the midline. Peritoneum was identified, entered bluntly with fingers. Peritoneal incision was extended superiorly and inferiorly with good visualization of the bladder. Then Gibson abdominal retractor was placed to retract the abdominal wall during surgery. The vesicouterine peritoneum was identified, grasped with pickups and entered sharply with Metzenbaum scissors. The bladder flap was created digitally and bladder blade was inserted. Lower uterine segment was incised in transverse fashion, incision was extended laterally with the help of fingers. Membranes were ruptured. Meconium-stained fluid was obtained. Baby's head was in OP position with loops of cord bulging from the incision as well as around the neck. Baby's head was brought to the incision, delivered without difficulty. Shoulders were delivered with minimal traction. Mouth and nose were suctioned. Cord was clamped x2 and cut and baby was handed to the waiting pediatric team. Then the placenta was delivered manually as intact and complete. Uterus was exteriorized, cleared of all clots and debris. Uterine incision was repaired with 0 Vicryl in a running locked fashion and a second imbricating layer was placed with another 0 Vicryl in a running locked fashion and excellent hemostasis was achieved. The posterior cul-de-sac was irrigated with warm normal saline and suctioned. Uterus was returned to the abdomen. The pelvis was irrigated with warm normal saline and suctioned and then the incision was checked to be again hemostatic. Parietal peritoneum was reapproximated with 3-0 Vicryl in a running fashion. Rectus muscles were reapproximated with the same suture in a running fashion and the rectus muscles and under the fascia were checked to be hemostatic. Alan powder was applied under the fascia and around the muscle. Then rectus fascia was closed with #1 Vicryl in a running fashion. Subcuticular fat tissue was brought together with 3-0 Vicryl in a running fashion. Skin was closed with 4-0 Monocryl in a subcuticular fashion. The skin dressing was applied with suction. LAWRENCE Dressing. The patient tolerated the procedure well. Sponge, lap, needle count was correct x3. No complications happened. I was and Dr. Young was present during whole procedure. The patient was taken to recovery room in stable condition. She received 3 grams of cefazolin before surgery and 500 mg of azithromycin during surgery. I attest to the content of the Intraoperative Record and any orders documented therein. Any exceptions are noted below. ARMINDA
[2020-06-13] MEDS: METHYLERGONOVINE MALEATE 0.2 MG TAB PO SCH ×5 (04:17→20:50)
[2020-06-13] MEDS ORDERED: CEFAZOLIN 3000MG/72.5 ML BAG IV SCH (05:00)
[2020-06-13] MEDS: CEFAZOLIN 3,000 MG in DEXTROSE 5% 50 ML IV SCH ×3 (05:13→21:18)
[2020-06-13] MEDS ORDERED: CITRIC ACID/SODIUM CITRATE 15 ML UDC PO SCH (06:00)
[2020-06-13 06:16] LABS: Hematocrit (blood only) 34.9 % (37-47); Hemoglobin 11.7 g/dL (12.0-16.0); Mean Corpuscular Hemoglobin 27.6 pg (25-34); Mean Corpuscular Hgb Conc 33.5 g/dL (32-36); Mean Corpuscular Volume 82.3 fL (80-100); Platelet Count 95 K/uL (130-400); RDW Coefficient of Variation 14.2 % (11.5-14.5); RDW Standard Deviation 42.5 fL (36.4-46.3); Red Blood Count 4.24 M/uL (4.2-5.4); White Blood Count 19.57 K/uL (4.8-10.8)
[2020-06-13 06:17] LABS: Eosinophils # (auto) 0.01 K/uL (0-0.5); Eosinophils % (auto) 0.1 %; Immature Granulocytes # (auto) 0.07 K/uL (0.00-0.02); Immature Granulocytes % (auto) 0.4 %; Lymphocytes # (auto) 2.88 K/uL (1.2-3.4); Lymphocytes % (auto) 14.7 %; Monocytes # (auto) 1.29 K/uL (0.11-0.59); Monocytes % (auto) 6.6 %; Neutrophils # (auto) 15.32 K/uL (1.4-6.5); Neutrophils % (auto) 78.2 %; Platelet Estimate Decreased (Normal); RBC Morphology Unremarkable
--- NOTE | 2020-06-13 07:39 | Anesthesiology Progress Note ---
Date of Service June 13, 2020 Anesthesia Post Procedure Vital Signs Vital Signs: Temp Pulse Pulse Pulse Resp BP BP 06/13/20 06:00 18 06/13/20 05:00 37.2 C 92 H 18 127/73 06/13/20 04:20 18 06/13/20 03:30 18 06/13/20 02:10 37.3 C 99 H 18 136/70 06/13/20 01:56 104 H 06/13/20 01:51 89 06/13/20 01:50 85 108/55 L 06/13/20 01:46 92 H 06/13/20 01:41 87 06/13/20 01:40 83 113/57 L 06/13/20 01:36 104 H 06/13/20 01:31 83 06/13/20 01:30 77 18 124/60 06/13/20 01:26 86 06/13/20 01:21 81 06/13/20 01:20 73 124/60 06/13/20 01:16 81 06/13/20 01:11 76 06/13/20 01:10 88 121/57 L 06/13/20 01:06 93 H 06/13/20 01:01 95 H 06/13/20 01:00 109 H 18 113/58 L 06/13/20 00:56 89 06/13/20 00:51 92 H 06/13/20 00:50 93 H 123/61 06/13/20 00:46 108 H 06/13/20 00:45 100 H 06/13/20 00:41 85 06/13/20 00:40 89 120/59 L 06/13/20 00:36 87 06/13/20 00:31 84 06/13/20 00:30 83 18 123/56 L 06/13/20 00:26 85 06/13/20 00:21 85 06/13/20 00:20 83 18 112/56 L 06/13/20 00:16 81 06/13/20 00:11 81 06/13/20 00:10 75 18 108/55 L 06/13/20 00:06 79 06/13/20 00:01 83 140/63 06/12/20 23:56 80 06/12/20 23:51 85 06/12/20 23:50 83 20 102/62 06/12/20 23:46 79 08/23/20 23:43 105 H 06/12/20 23:41 86 06/12/20 23:40 90 20 119/55 L 06/12/20 23:36 104 H 06/12/20 23:33 93 H 06/12/20 23:31 103 H 06/12/20 23:29 104 H 134/63 06/12/20 22:00 98 H 144/88 H 06/12/20 21:57 96 H 06/12/20 21:56 18 06/12/20 21:54 85 142/89 H 06/12/20 21:52 82 06/12/20 21:48 71 06/12/20 21:43 84 06/12/20 21:38 69 06/12/20 21:33 67 06/12/20 21:30 18 06/12/20 21:28 62 06/12/20 21:23 94 H 06/12/20 21:18 70 06/12/20 21:15 76 131/74 06/12/20 21:13 70 06/12/20 21:08 58 L 06/12/20 21:03 61 06/12/20 21:01 37.6 C H 06/12/20 21:00 18 06/12/20 20:59 56 L 139/64 06/12/20 20:58 62 06/12/20 20:53 58 L 06/12/20 20:48 59 L 06/12/20 20:44 55 L 131/81 06/12/20 20:43 57 L 06/12/20 20:38 60 06/12/20 20:33 60 06/12/20 20:30 18 06/12/20 20:28 65 143/72 H 06/12/20 20:23 64 06/12/20 20:18 63 06/12/20 20:15 61 130/59 L 06/12/20 20:13 60 06/12/20 20:08 58 L 06/12/20 20:03 69 06/12/20 20:00 18 06/12/20 19:59 54 L 142/65 H 06/12/20 19:58 55 L 06/12/20 19:53 53 L 06/12/20 19:48 55 L 06/12/20 19:44 89 125/73 06/12/20 19:43 64 06/12/20 19:38 53 L 06/12/20 19:33 50 L 06/12/20 19:30 55 L 139/69 06/12/20 19:28 54 L 06/12/20 19:23 56 L 06/12/20 19:18 60 06/12/20 19:16 81 136/81 06/12/20 19:13 65 06/12/20 19:09 37.6 C H 18 06/12/20 19:08 55 L 06/12/20 19:03 62 06/12/20 18:59 78 140/86 06/12/20 18:58 80 06/12/20 18:57 85 142/91 H 06/12/20 18:53 62 06/12/20 18:48 63 06/12/20 18:43 64 06/12/20 18:38 79 06/12/20 18:33 87 06/12/20 18:28 37.3 C 51 L 20 127/65 06/12/20 18:23 50 L 06/12/20 18:18 52 L 06/12/20 18:13 56 L 129/68 06/12/20 18:08 51 L 06/12/20 18:03 50 L 06/12/20 17:59 50 L 124/66 06/12/20 17:58 50 L 06/12/20 17:53 50 L 06/12/20 17:48 51 L 06/12/20 17:44 48 L 126/63 06/12/20 17:43 52 L 06/12/20 17:38 59 L 06/12/20 17:33 61 06/12/20 17:29 55 L 124/58 L 06/12/20 17:28 56 L 06/12/20 17:23 54 L 06/12/20 17:18 57 L 06/12/20 17:14 52 L 18 119/58 L 06/12/20 17:13 51 L 06/12/20 17:12 53 L 06/12/20 17:08 51 L 06/12/20 17:03 54 L 06/12/20 17:00 55 L 119/57 L 06/12/20 16:59 58 L 06/12/20 16:58 60 08/23/20 16:53 57 L 06/12/20 16:48 69 06/12/20 16:43 82 06/12/20 16:42 68 06/12/20 16:38 70 126/58 L 06/12/20 16:36 58 L 06/12/20 16:33 66 125/58 L 06/12/20 16:30 96 H 126/58 L 06/12/20 16:28 98 H 06/12/20 16:27 84 121/58 L 06/12/20 16:25 79 122/60 06/12/20 16:23 84 06/12/20 16:22 37.3 C 85 20 115/56 L 06/12/20 16:18 104 H 06/12/20 16:13 105 H 06/12/20 16:12 110 H 06/12/20 16:08 93 H 06/12/20 16:03 104 H 06/12/20 16:02 93 H 155/63 H 06/12/20 15:58 96 H 06/12/20 15:53 84 06/12/20 15:48 84 06/12/20 15:43 89 06/12/20 14:53 96 H 126/80 06/12/20 13:54 95 H 119/83 06/12/20 12:20 77 24 118/66 06/12/20 11:49 74 132/64 06/12/20 11:20 59 L 113/57 L 06/12/20 11:19 37.4 C 24 06/12/20 10:24 75 22 135/61 06/12/20 10:22 78 89/61 L 06/12/20 09:10 82 24 135/66 06/12/20 08:08 63 20 115/56 L Pulse Ox 06/13/20 06:00 96 06/13/20 05:00 96 06/13/20 04:20 91 06/13/20 03:30 90 06/13/20 02:10 97 06/13/20 01:56 95 06/13/20 01:51 93 06/13/20 01:50 06/13/20 01:46 94 06/13/20 01:41 92 06/13/20 01:40 06/13/20 01:36 93 06/13/20 01:31 93 06/13/20 01:30 06/13/20 01:26 92 06/13/20 01:21 93 06/13/20 01:20 06/13/20 01:16 92 06/13/20 01:11 94 06/13/20 01:10 06/13/20 01:06 95 06/13/20 01:01 94 06/13/20 01:00 06/13/20 00:56 94 06/13/20 00:51 93 06/13/20 00:50 06/13/20 00:46 91 06/13/20 00:45 88 L 06/13/20 00:41 93 06/13/20 00:40 06/13/20 00:36 94 06/13/20 00:31 95 06/13/20 00:30 96 06/13/20 00:26 95 06/13/20 00:21 96 06/13/20 00:20 96 06/13/20 00:16 94 06/13/20 00:11 96 06/13/20 00:10 97 06/13/20 00:06 97 06/13/20 00:01 97 06/12/20 23:56 97 06/12/20 23:51 97 06/12/20 23:50 97 06/12/20 23:46 99 06/12/20 23:43 92 06/12/20 23:41 99 06/12/20 23:40 99 06/12/20 23:36 96 06/12/20 23:33 91 06/12/20 23:31 100 06/12/20 23:29 06/12/20 22:00 92 06/12/20 21:57 77 L 06/12/20 21:56 06/12/20 21:54 90 06/12/20 21:52 97 06/12/20 21:48 99 06/12/20 21:43 98 06/12/20 21:38 98 06/12/20 21:33 99 06/12/20 21:30 06/12/20 21:28 99 06/12/20 21:23 98 06/12/20 21:18 99 06/12/20 21:15 88 L 06/12/20 21:13 98 06/12/20 21:08 99 06/12/20 21:03 99 06/12/20 21:01 06/12/20 21:00 06/12/20 20:59 06/12/20 20:58 98 06/12/20 20:53 98 06/12/20 20:48 98 06/12/20 20:44 06/12/20 20:43 99 06/12/20 20:38 100 06/12/20 20:33 99 06/12/20 20:30 06/12/20 20:28 95 06/12/20 20:23 96 06/12/20 20:18 97 06/12/20 20:15 06/12/20 20:13 97 06/12/20 20:08 98 06/12/20 20:03 97 06/12/20 20:00 06/12/20 19:59 06/12/20 19:58 98 06/12/20 19:53 96 06/12/20 19:48 97 06/12/20 19:44 06/12/20 19:43 97 06/12/20 19:38 97 06/12/20 19:33 96 06/12/20 19:30 06/12/20 19:28 95 06/12/20 19:23 96 06/12/20 19:18 99 06/12/20 19:16 06/12/20 19:13 99 06/12/20 19:09 06/12/20 19:08 98 06/12/20 19:03 100 06/12/20 18:59 06/12/20 18:58 99 06/12/20 18:57 06/12/20 18:53 98 06/12/20 18:48 99 06/12/20 18:43 98 06/12/20 18:38 99 06/12/20 18:33 96 06/12/20 18:28 95 06/12/20 18:23 94 06/12/20 18:18 93 06/12/20 18:13 94 06/12/20 18:08 94 06/12/20 18:03 93 06/12/20 17:59 06/12/20 17:58 94 06/12/20 17:53 93 06/12/20 17:48 94 06/12/20 17:44 06/12/20 17:43 96 06/12/20 17:38 96 06/12/20 17:33 98 06/12/20 17:29 06/12/20 17:28 97 06/12/20 17:23 94 06/12/20 17:18 94 06/12/20 17:14 06/12/20 17:13 94 06/12/20 17:12 94 06/12/20 17:08 96 06/12/20 17:03 96 06/12/20 17:00 06/12/20 16:59 90 06/12/20 16:58 99 06/12/20 16:53 98 06/12/20 16:48 99 06/12/20 16:43 97 06/12/20 16:42 91 06/12/20 16:38 95 06/12/20 16:36 94 06/12/20 16:33 99 06/12/20 16:30 06/12/20 16:28 99 06/12/20 16:27 06/12/20 16:25 06/12/20 16:23 98 06/12/20 16:22 06/12/20 16:18 97 06/12/20 16:13 96 06/12/20 16:12 91 06/12/20 16:08 98 06/12/20 16:03 97 06/12/20 16:02 06/12/20 15:58 98 06/12/20 15:53 95 06/12/20 15:48 97 06/12/20 15:43 98 06/12/20 14:53 06/12/20 13:54 06/12/20 12:20 06/12/20 11:49 06/12/20 11:20 06/12/20 11:19 06/12/20 10:24 06/12/20 10:22 06/12/20 09:10 06/12/20 08:08 Pain Intensity Lower Abdomen: Pain Intensity: 3 Transfer of Care Handoff Completed per policy Notes Mental Status: alert / awake / arousable and participated in evaluation Nausea / Vomiting: adequately controlled Pain: adequately controlled Airway Patency, RR, SpO2: stable & adequate BP & HR: stable & adequate Hydration State: stable & adequate Neuraxial Anesthesia: was administered and sensory block resolved Anesthetic Complications: no major complications apparent and Pt Satisfied with anesthetic care
[2020-06-13] MEDS: SIMETHICONE 80 MG CHEW PO SCH ×4 (08:31→20:50)
[2020-06-13] MEDS: FERROUS SULFATE 325 MG TAB PO SCH (08:31)
[2020-06-13] MEDS: DOCUSATE SODIUM 100 MG CAP PO SCH ×2 (08:31→20:50)
[2020-06-13] MEDS: PRENATAL VITAMIN 1 TAB PO SCH (08:31)
[2020-06-13] MEDS: OXYTOCIN 30 UNITS in LACTATED RINGER'S 1,000 ML IV SCH (08:32)
--- NOTE | 2020-06-13 09:19 | Obstetrical Progress Note ---
Date of Service June 13, 2020 Assessment & Plan (1) delivery delivered: POD #1 pt doing well continue day #1 care Subjective Ambulation: ambulating normally Voiding: no voiding problems Passing Gas:: Yes Diet Tolerance:: clear liquids Lochia:: Small Feeding Type:: breast feeding Review of Systems All systems reviewed & are unremarkable except as noted in HPI & below Physical Exam Constitutional WD/WN, vitals as above well developed and well nourished Eyes PERRL, conjunctivae normal, anicteric sclerae ENMT external ear and nose normal, oropharynx normal Neck trachea midline, no thyromegaly Respiratory normal respiratory effort, lungs clear to auscultation Cardiovascular RRR, no murmur, no edema Chest (Breasts) normal inspection/palpation of breasts Gastrointestinal (Abdomen) normal bowel sounds, soft, nontender, no hepatosplenomegaly Musculoskeletal no cyanosis or clubbing, extremities motor strength 5/5 Skin no rashes, warm and dry + incision (Clean,dry and intact) Neurologic patellar DTR's 2+ bilat, sensation intact Psychiatric A+Ox3, euthymic affect Genitourinary normal external appearance Lymphatic no cervical or axillary lymphadenopathy Results & Data ([facility]) Vital Signs (Past 12 Hours) Vital Signs Temp Pulse Pulse Pulse Resp BP BP 06/13/20 06:00 18 06/13/20 05:00 37.2 C 92 H 18 127/73 06/13/20 04:20 18 06/13/20 03:30 18 06/13/20 02:10 37.3 C 99 H 18 136/70 06/13/20 01:56 104 H 06/13/20 01:51 89 06/13/20 01:50 85 108/55 L 06/13/20 01:46 92 H 06/13/20 01:41 87 06/13/20 01:40 83 113/57 L 06/13/20 01:36 104 H 06/13/20 01:31 83 06/13/20 01:30 77 18 124/60 06/13/20 01:26 86 06/13/20 01:21 81 06/13/20 01:20 73 124/60 06/13/20 01:16 81 06/13/20 01:11 76 06/13/20 01:10 88 121/57 L 06/13/20 01:06 93 H 06/13/20 01:01 95 H 06/13/20 01:00 109 H 18 113/58 L 06/13/20 00:56 89 06/13/20 00:51 92 H 06/13/20 00:50 93 H 123/61 06/13/20 00:46 108 H 06/13/20 00:45 100 H 06/13/20 00:41 85 06/13/20 00:40 89 120/59 L 06/13/20 00:36 87 06/13/20 00:31 84 06/13/20 00:30 83 18 123/56 L 06/13/20 00:26 85 06/13/20 00:21 85 06/13/20 00:20 83 18 112/56 L 06/13/20 00:16 81 06/13/20 00:11 81 06/13/20 00:10 75 18 108/55 L 06/13/20 00:06 79 06/13/20 00:01 83 140/63 06/12/20 23:56 80 06/12/20 23:51 85 06/12/20 23:50 83 20 102/62 06/12/20 23:46 79 06/12/20 23:43 105 H 06/12/20 23:41 86 06/12/20 23:40 90 20 119/55 L 06/12/20 23:36 104 H 06/12/20 23:33 93 H 06/12/20 23:31 103 H 06/12/20 23:29 104 H 134/63 06/12/20 22:00 98 H 144/88 H 06/12/20 21:57 96 H 06/12/20 21:56 18 06/12/20 21:54 85 142/89 H 06/12/20 21:52 82 06/12/20 21:48 71 06/12/20 21:43 84 06/12/20 21:38 69 06/12/20 21:33 67 06/12/20 21:30 18 06/12/20 21:28 62 06/12/20 21:23 94 H Pulse Ox 06/13/20 06:00 96 06/13/20 05:00 96 06/13/20 04:20 91 06/13/20 03:30 90 06/13/20 02:10 97 06/13/20 01:56 95 06/13/20 01:51 93 06/13/20 01:50 06/13/20 01:46 94 06/13/20 01:41 92 06/13/20 01:40 06/13/20 01:36 93 06/13/20 01:31 93 06/13/20 01:30 06/13/20 01:26 92 06/13/20 01:21 93 06/13/20 01:20 06/13/20 01:16 92 06/13/20 01:11 94 06/13/20 01:10 06/13/20 01:06 95 06/13/20 01:01 94 06/13/20 01:00 06/13/20 00:56 94 06/13/20 00:51 93 06/13/20 00:50 06/13/20 00:46 91 06/13/20 00:45 88 L 06/13/20 00:41 93 06/13/20 00:40 06/13/20 00:36 94 06/13/20 00:31 95 06/13/20 00:30 96 06/13/20 00:26 95 06/13/20 00:21 96 06/13/20 00:20 96 06/13/20 00:16 94 06/13/20 00:11 96 06/13/20 00:10 97 06/13/20 00:06 97 06/13/20 00:01 97 06/12/20 23:56 97 06/12/20 23:51 97 06/12/20 23:50 97 06/12/20 23:46 99 06/12/20 23:43 92 06/12/20 23:41 99 06/12/20 23:40 99 06/12/20 23:36 96 06/12/20 23:33 91 06/12/20 23:31 100 06/12/20 23:29 06/12/20 22:00 92 06/12/20 21:57 77 L 06/12/20 21:56 06/12/20 21:54 90 06/12/20 21:52 97 06/12/20 21:48 99 06/12/20 21:43 98 06/12/20 21:38 98 06/12/20 21:33 99 06/12/20 21:30 06/12/20 21:28 99 06/12/20 21:23 98
[2020-06-13] MEDS ORDERED: ONDANSETRON INJ 2 MG/ML 2 ML VIAL IV PRN (17:32)
[2020-06-13] MEDS ORDERED: DiphenhydrAMINE HCL 50 MG/ML VIAL IV PRN (17:32)
[2020-06-13] MEDS ORDERED: MEPERIDINE HCL 50 MG/ML CARP IV PRN (17:32)
[2020-06-13] MEDS ORDERED: PROMETHAZINE HCL 25 MG in SODIUM CHLORIDE 0.9% 50 ML IV PRN (17:32)
[2020-06-13] MEDS: OXYCODONE/ACETAMINOPHEN 5mg/325mg TAB PO PRN (17:37)
[2020-06-13] MEDS ORDERED: bisacodyL 5 MG TABEC PO SCH (20:00)
[2020-06-13] MEDS: IBUPROFEN 600 MG TAB PO SCH (20:51)
[2020-06-14] MEDS: IBUPROFEN 600 MG TAB PO SCH ×2 (00:04→06:49)
[2020-06-14 07:39] LABS: Hematocrit (blood only) 32.6 % (37-47); Hemoglobin 10.4 g/dL (12.0-16.0); Mean Corpuscular Hemoglobin 27.1 pg (25-34); Mean Corpuscular Hgb Conc 31.9 g/dL (32-36); Mean Corpuscular Volume 84.9 fL (80-100); Mean Platelet Volume 13.7 fL (7.4-10.4); Platelet Count 77 K/uL (130-400); RDW Coefficient of Variation 14.7 % (11.5-14.5); RDW Standard Deviation 45.8 fL (36.4-46.3); Red Blood Count 3.84 M/uL (4.2-5.4); White Blood Count 11.12 K/uL (4.8-10.8)
[2020-06-14 07:40] LABS: Basophils # (auto) 0.01 K/uL (0-0.2); Basophils % (auto) 0.1 %; Eosinophils # (auto) 0.09 K/uL (0-0.5); Eosinophils % (auto) 0.8 %; Immature Granulocytes # (auto) 0.05 K/uL (0.00-0.02); Immature Granulocytes % (auto) 0.4 %; Lymphocytes # (auto) 2.15 K/uL (1.2-3.4); Lymphocytes % (auto) 19.3 %; Monocytes % (auto) 9.9 %; Neutrophils # (auto) 7.72 K/uL (1.4-6.5); Neutrophils % (auto) 69.5 %; Platelet Estimate Decreased (Normal); RBC Morphology Unremarkable
[2020-06-14] MEDS: FERROUS SULFATE 325 MG TAB PO SCH (08:36)
[2020-06-14] MEDS: DOCUSATE SODIUM 100 MG CAP PO SCH ×2 (08:36→21:34)
[2020-06-14] MEDS: PRENATAL VITAMIN 1 TAB PO SCH (08:36)
[2020-06-14] MEDS: METHYLERGONOVINE MALEATE 0.2 MG TAB PO SCH ×4 (08:37→21:34)
[2020-06-14] MEDS: SIMETHICONE 80 MG CHEW PO SCH ×4 (08:37→21:34)
--- NOTE | 2020-06-14 08:52 | Obstetrical Progress Note ---
Date of Service June 14, 2020 Assessment & Plan Admission and Anticipated Discharge Date Admission Date: June 10, 2020 Subjective Patient is seen and examined. She feels well, no complaints. Pain is under control with oral meds. Ambulating without dizziness Voiding without difficulty Tolerating regular diet with out N&V Flatus yes BM none Bleeding is minimal No fever/ chills/ CP/ SOB/ N&V/ Leg pain Breast feeding without problems Vital Signs Temp Pulse Pulse Resp BP Pulse Ox 06/13/20 23:30 36.8 C 86 86 16 112/73 95 06/13/20 20:21 36.9 C 88 18 104/68 93 06/13/20 17:00 18 97 06/13/20 16:00 16 97 06/13/20 15:20 36.6 C 99 H 18 125/83 99 06/13/20 15:00 16 99 06/13/20 14:05 20 100 06/13/20 13:40 20 100 06/13/20 12:45 36.7 C 85 20 113/75 98 06/13/20 10:40 20 100 06/13/20 09:40 20 96 Intake and Output 06/13/20 06/14/20 06/14/20 22:59 06:59 14:59 Intake Total 668 / 1067.583 Output Total 2850 / 2850 Balance -2182 / -1782.417 Intake: Oral 668 / 668 Output: Urine Amount (Catheter) 2850 / 2850 Shabazz/Indwelling 2850 / 2850 Lab Results 06/10/20 06/10/20 06/10/20 Range/Units 08:39 08:39 08:39 WBC 14.40 H (4.8-10.8) K/uL RBC 4.51 (4.2-5.4) M/uL Hgb 12.5 (12.0-16.0) g/dL Hct 37.2 (37-47) % MCV 82.5 (80-100) fL MCH 27.7 (25-34) pg MCHC 33.6 (32-36) g/dL RDW Std Deviation 42.9 (36.4-46.3) fL RDW Coeff of Lucy 14.2 (11.5-14.5) % Plt Count 79 L (130-400) K/uL MPV (7.4-10.4) fL Immature Gran % (Auto) 0.8 % Neut % (Auto) 69.1 % Lymph % (Auto) 22.6 % Gaines % (Auto) 7.3 % Eos % (Auto) 0.1 % Baso % (Auto) 0.1 % Neut # (Auto) 9.95 H (1.4-6.5) K/uL Lymph # (Auto) 3.26 (1.2-3.4) K/uL Gaines # (Auto) 1.05 H (0.11-0.59) K/uL Eos # (Auto) 0.01 (0-0.5) K/uL Baso # (Auto) 0.01 (0-0.2) K/uL Immature Gran # (Auto) 0.12 H (0.00-0.02) K/uL Platelet Estimate Decreased L (Normal) RBC Morphology PT 10.0 (9.0-12.0) Seconds INR 0.9 (0.9-1.1) APTT 22.2 (21.0-31.0) Seconds PTT Ratio 0.8 Sodium (136-145) mmol/L Potassium (3.5-5.1) mmol/L Chloride (98-107) mmol/L Carbon Dioxide (21-32) mmol/L Anion Gap (3-11) BUN (7-18) mg/dl Creatinine (0.6-1.2) mg/dl Est Cr Clr Drug Dosing ml/min Est GFR ( Amer) Est GFR (Non-Af Amer) BUN/Creatinine Ratio (10-20) Glucose (70-99) mg/dl Calcium (8.5-10.1) mg/dl Total Bilirubin (0.2-1) mg/dl AST (15-37) U/L ALT (12-78) U/L Alkaline Phosphatase (45-117) U/L Total Protein (6.4-8.2) gm/dl Albumin (3.4-5.0) gm/dl Globulin (2.5-4.0) gm/dl Albumin/Globulin Ratio (0.9-2) Blood Type A Positive Antibody Screen NEGATIVE 06/10/20 06/11/20 06/12/20 Range/Units 08:39 06:13 06:10 WBC 11.40 H 12.23 H (4.8-10.8) K/uL RBC 4.57 4.81 (4.2-5.4) M/uL Hgb 12.7 13.2 (12.0-16.0) g/dL Hct 38.5 39.8 (37-47) % MCV 84.2 82.7 (80-100) fL MCH 27.8 27.4 (25-34) pg MCHC 33.0 33.2 (32-36) g/dL RDW Std Deviation 44.4 42.8 (36.4-46.3) fL RDW Coeff of Lucy 14.3 14.2 (11.5-14.5) % Plt Count 89 L 81 L (130-400) K/uL MPV (7.4-10.4) fL Immature Gran % (Auto) 1.1 0.4 % Neut % (Auto) 59.8 68.5 % Lymph % (Auto) 29.9 23.1 % Gaines % (Auto) 8.3 7.0 % Eos % (Auto) 0.8 0.9 % Baso % (Auto) 0.1 0.1 % Neut # (Auto) 6.82 H 8.37 H (1.4-6.5) K/uL Lymph # (Auto) 3.41 H 2.83 (1.2-3.4) K/uL Gaines # (Auto) 0.95 H 0.86 H (0.11-0.59) K/uL Eos # (Auto) 0.09 0.11 (0-0.5) K/uL Baso # (Auto) 0.01 0.01 (0-0.2) K/uL Immature Gran # (Auto) 0.12 H 0.05 H (0.00-0.02) K/uL Platelet Estimate Decreased L Decreased L (Normal) RBC Morphology PT (9.0-12.0) Seconds INR (0.9-1.1) APTT (21.0-31.0) Seconds PTT Ratio Sodium 139 (136-145) mmol/L Potassium 3.5 (3.5-5.1) mmol/L Chloride 107 (98-107) mmol/L Carbon Dioxide 21 (21-32) mmol/L Anion Gap 11.0 (3-11) BUN 10 (7-18) mg/dl Creatinine 0.76 (0.6-1.2) mg/dl Est Cr Clr Drug Dosing 161.3 ml/min Est GFR ( Amer) 123.7 Est GFR (Non-Af Amer) 106.8 BUN/Creatinine Ratio 13.2 (10-20) Glucose 117 H (70-99) mg/dl Calcium 8.9 (8.5-10.1) mg/dl Total Bilirubin 0.3 (0.2-1) mg/dl AST 19 (15-37) U/L ALT 19 (12-78) U/L Alkaline Phosphatase 125 H (45-117) U/L Total Protein 5.9 L (6.4-8.2) gm/dl Albumin 2.5 L (3.4-5.0) gm/dl Globulin 3.4 (2.5-4.0) gm/dl Albumin/Globulin Ratio 0.7 L (0.9-2) Blood Type Antibody Screen 06/12/20 06/12/20 06/13/20 Range/Units 14:42 21:38 05:32 WBC 19.04 H 18.22 H 19.57 H (4.8-10.8) K/uL RBC 5.32 4.80 4.24 (4.2-5.4) M/uL Hgb 15.0 13.6 11.7 L (12.0-16.0) g/dL Hct 44.6 40.3 34.9 L (37-47) % MCV 83.8 84.0 82.3 (80-100) fL MCH 28.2 28.3 27.6 (25-34) pg MCHC 33.6 33.7 33.5 (32-36) g/dL RDW Std Deviation 43.4 43.0 42.5 (36.4-46.3) fL RDW Coeff of Lucy 14.1 14.0 14.2 (11.5-14.5) % Plt Count 90 L 91 L 95 L (130-400) K/uL MPV (7.4-10.4) fL Immature Gran % (Auto) 0.3 0.3 0.4 % Neut % (Auto) 93.3 88.3 78.2 % Lymph % (Auto) 5.4 6.1 14.7 % Gaines % (Auto) 0.8 5.2 6.6 % Eos % (Auto) 0.1 0.0 0.1 % Baso % (Auto) 0.1 0.1 0.0 % Neut # (Auto) 17.78 H 16.11 H 15.32 H (1.4-6.5) K/uL Lymph # (Auto) 1.03 L 1.11 L 2.88 (1.2-3.4) K/uL Gaines # (Auto) 0.15 0.94 H 1.29 H (0.11-0.59) K/uL Eos # (Auto) 0.01 0.00 0.01 (0-0.5) K/uL Baso # (Auto) 0.01 0.01 0.00 (0-0.2) K/uL Immature Gran # (Auto) 0.06 H 0.05 H 0.07 H (0.00-0.02) K/uL Platelet Estimate Decreased L Decreased L Decreased L (Normal) RBC Morphology Unremarkable PT (9.0-12.0) Seconds INR (0.9-1.1) APTT (21.0-31.0) Seconds PTT Ratio Sodium (136-145) mmol/L Potassium (3.5-5.1) mmol/L Chloride (98-107) mmol/L Carbon Dioxide (21-32) mmol/L Anion Gap (3-11) BUN (7-18) mg/dl Creatinine (0.6-1.2) mg/dl Est Cr Clr Drug Dosing ml/min Est GFR ( Amer) Est GFR (Non-Af Amer) BUN/Creatinine Ratio (10-20) Glucose (70-99) mg/dl Calcium (8.5-10.1) mg/dl Total Bilirubin (0.2-1) mg/dl AST (15-37) U/L ALT (12-78) U/L Alkaline Phosphatase (45-117) U/L Total Protein (6.4-8.2) gm/dl Albumin (3.4-5.0) gm/dl Globulin (2.5-4.0) gm/dl Albumin/Globulin Ratio (0.9-2) Blood Type Antibody Screen 06/14/20 Range/Units 06:40 WBC 11.12 H (4.8-10.8) K/uL RBC 3.84 L (4.2-5.4) M/uL Hgb 10.4 L (12.0-16.0) g/dL Hct 32.6 L (37-47) % MCV 84.9 (80-100) fL MCH 27.1 (25-34) pg MCHC 31.9 L (32-36) g/dL RDW Std Deviation 45.8 (36.4-46.3) fL RDW Coeff of Lucy 14.7 H (11.5-14.5) % Plt Count 77 L (130-400) K/uL MPV 13.7 H (7.4-10.4) fL Immature Gran % (Auto) 0.4 % Neut % (Auto) 69.5 % Lymph % (Auto) 19.3 % Gaines % (Auto) 9.9 % Eos % (Auto) 0.8 % Baso % (Auto) 0.1 % Neut # (Auto) 7.72 H (1.4-6.5) K/uL Lymph # (Auto) 2.15 (1.2-3.4) K/uL Gaines # (Auto) 1.10 H (0.11-0.59) K/uL Eos # (Auto) 0.09 (0-0.5) K/uL Baso # (Auto) 0.01 (0-0.2) K/uL Immature Gran # (Auto) 0.05 H (0.00-0.02) K/uL Platelet Estimate Decreased L (Normal) RBC Morphology Unremarkable PT (9.0-12.0) Seconds INR (0.9-1.1) APTT (21.0-31.0) Seconds PTT Ratio Sodium (136-145) mmol/L Potassium (3.5-5.1) mmol/L Chloride (98-107) mmol/L Carbon Dioxide (21-32) mmol/L Anion Gap (3-11) BUN (7-18) mg/dl Creatinine (0.6-1.2) mg/dl Est Cr Clr Drug Dosing ml/min Est GFR ( Amer) Est GFR (Non-Af Amer) BUN/Creatinine Ratio (10-20) Glucose (70-99) mg/dl Calcium (8.5-10.1) mg/dl Total Bilirubin (0.2-1) mg/dl AST (15-37) U/L ALT (12-78) U/L Alkaline Phosphatase (45-117) U/L Total Protein (6.4-8.2) gm/dl Albumin (3.4-5.0) gm/dl Globulin (2.5-4.0) gm/dl Albumin/Globulin Ratio (0.9-2) Blood Type Antibody Screen PE: General: Alert, orientedx3, NAD CVS: S1S2 RRR Lungs; CTAB Abd: soft, NT, ND, BS+, fundus firm, below Umbilicus Incision/ Dressing: Clean, dry, intact Perineum intact, Lochia rubra minimal Ext; NT, 2+/2+ edema BL, softer than before, Boogie's negative BL AP: 29 yo s/p C Section, pod# 2 VSS Afebrile doing well Continue routine postop care Encourage ambulation, PO intake D/W DR Decker from hematology, aware of platelet numbers He is okay her to be on Motrin as long as Platelets are over 50 K Recommended Omeprazole while on Motrin All questions were answered D/C home tomorrow Results & Data ([facility]) Vital Signs (Past 12 Hours) Vital Signs Temp Pulse Pulse Resp BP Pulse Ox 06/13/20 23:30 36.8 C 86 86 16 112/73 95
[2020-06-14] MEDS: AMOXICILLIN/CLAVULANATE 875 MG TAB PO SCH ×2 (09:53→16:56)
[2020-06-14] MEDS: FAMOTIDINE 20 MG TAB PO SCH (09:54)
[2020-06-14] MEDS: OXYCODONE/ACETAMINOPHEN 5mg/325mg TAB PO PRN ×3 (12:05→20:15)
[2020-06-14] MEDS: IBUPROFEN 600 MG TAB PO PRN (15:01)
[2020-06-14] MEDS ORDERED: bisacodyL 10 MG SUPP PR PRN (23:23)
[2020-06-15] MEDS: IBUPROFEN 600 MG TAB PO PRN (04:23)
[2020-06-15] MEDS: OXYCODONE/ACETAMINOPHEN 5mg/325mg TAB PO PRN ×4 (04:23→20:07)
[2020-06-15] MEDS: PRENATAL VITAMIN 1 TAB PO SCH (08:00)
--- NOTE | 2020-06-15 08:12 | Surgery Progress Note ---
Date of Service June 15, 2020 Assessment & Plan Admission and Anticipated Discharge Date Admission Date: June 10, 2020 Subjective doing well plans to go home passing gas amber diet ambulating well Physical Exam Constitutional: WD/WN, vitals as above + obese and comfortable abdomen soft incision c/d/i no edema neg Boogie's for d/c Results & Data ([facility]) Laboratory Results Laboratory Results - last 72 hr 06/12/20 06/12/20 06/13/20 14:42 21:38 05:32 WBC 19.04 H 18.22 H 19.57 H RBC 5.32 4.80 4.24 Hgb 15.0 13.6 11.7 L Hct 44.6 40.3 34.9 L MCV 83.8 84.0 82.3 MCH 28.2 28.3 27.6 MCHC 33.6 33.7 33.5 RDW Std Deviation 43.4 43.0 42.5 RDW Coeff of Lucy 14.1 14.0 14.2 Plt Count 90 L 91 L 95 L MPV Immature Gran % (Auto) 0.3 0.3 0.4 Neut % (Auto) 93.3 88.3 78.2 Lymph % (Auto) 5.4 6.1 14.7 Humphreys % (Auto) 0.8 5.2 6.6 Eos % (Auto) 0.1 0.0 0.1 Baso % (Auto) 0.1 0.1 0.0 Neut # (Auto) 17.78 H 16.11 H 15.32 H Lymph # (Auto) 1.03 L 1.11 L 2.88 Humphreys # (Auto) 0.15 0.94 H 1.29 H Eos # (Auto) 0.01 0.00 0.01 Baso # (Auto) 0.01 0.01 0.00 Immature Gran # (Auto) 0.06 H 0.05 H 0.07 H Platelet Estimate Decreased L Decreased L Decreased L RBC Morphology Unremarkable 06/14/20 06:40 WBC 11.12 H RBC 3.84 L Hgb 10.4 L Hct 32.6 L MCV 84.9 MCH 27.1 MCHC 31.9 L RDW Std Deviation 45.8 RDW Coeff of Lucy 14.7 H Plt Count 77 L MPV 13.7 H Immature Gran % (Auto) 0.4 Neut % (Auto) 69.5 Lymph % (Auto) 19.3 Humphreys % (Auto) 9.9 Eos % (Auto) 0.8 Baso % (Auto) 0.1 Neut # (Auto) 7.72 H Lymph # (Auto) 2.15 Humphreys # (Auto) 1.10 H Eos # (Auto) 0.09 Baso # (Auto) 0.01 Immature Gran # (Auto) 0.05 H Platelet Estimate Decreased L RBC Morphology Unremarkable
[2020-06-15] MEDS: AMOXICILLIN/CLAVULANATE 875 MG TAB PO SCH ×3 (08:30→20:08)
[2020-06-15] MEDS: FERROUS SULFATE 325 MG TAB PO SCH (08:31)
[2020-06-15] MEDS: SIMETHICONE 80 MG CHEW PO SCH ×4 (08:31→20:07)
[2020-06-15] MEDS: DOCUSATE SODIUM 100 MG CAP PO SCH ×2 (08:31→20:07)
[2020-06-15] MEDS: METHYLERGONOVINE MALEATE 0.2 MG TAB PO SCH ×4 (08:31→20:09)
[2020-06-15] MEDS: FAMOTIDINE 20 MG TAB PO SCH (08:32)
[2020-06-16] MEDS: OXYCODONE/ACETAMINOPHEN 5mg/325mg TAB PO PRN ×2 (03:38→09:57)
[2020-06-16] MEDS: SIMETHICONE 80 MG CHEW PO SCH (08:25)
[2020-06-16] MEDS: PRENATAL VITAMIN 1 TAB PO SCH (08:25)
[2020-06-16] MEDS: FERROUS SULFATE 325 MG TAB PO SCH (08:25)
[2020-06-16] MEDS: FAMOTIDINE 20 MG TAB PO SCH (08:25)
[2020-06-16] MEDS: DOCUSATE SODIUM 100 MG CAP PO SCH (08:26)
[2020-06-16] MEDS: METHYLERGONOVINE MALEATE 0.2 MG TAB PO SCH (09:00)
--- NOTE | 2020-06-16 09:13 | Obstetrical Progress Note ---
Date of Service June 16, 2020 Assessment & Plan Admission and Anticipated Discharge Date Admission Date: June 10, 2020 Subjective Patient is seen and examined. She feels well, no complaints. Pain is under control with oral meds. Ambulating without dizziness Voiding without difficulty Tolerating regular diet with out N&V Flatus + BM + Bleeding is minimal No fever/ chills/ CP/ SOB/ N&V/ Leg pain Breast feeding feeding without problems Vital Signs Temp Pulse Pulse Resp BP Pulse Ox 06/16/20 08:15 36.5 C 97 H 18 113/71 95 06/16/20 00:00 36.7 C 91 H 18 110/67 06/15/20 19:50 37 C 106 H 18 106/68 98 06/15/20 15:50 36.8 C 99 H 18 113/76 98 Lab Results 06/10/20 06/10/20 06/10/20 Range/Units 08:39 08:39 08:39 WBC 14.40 H (4.8-10.8) K/uL RBC 4.51 (4.2-5.4) M/uL Hgb 12.5 (12.0-16.0) g/dL Hct 37.2 (37-47) % MCV 82.5 (80-100) fL MCH 27.7 (25-34) pg MCHC 33.6 (32-36) g/dL RDW Std Deviation 42.9 (36.4-46.3) fL RDW Coeff of Lucy 14.2 (11.5-14.5) % Plt Count 79 L (130-400) K/uL MPV (7.4-10.4) fL Immature Gran % (Auto) 0.8 % Neut % (Auto) 69.1 % Lymph % (Auto) 22.6 % Fajardo % (Auto) 7.3 % Eos % (Auto) 0.1 % Baso % (Auto) 0.1 % Neut # (Auto) 9.95 H (1.4-6.5) K/uL Lymph # (Auto) 3.26 (1.2-3.4) K/uL Fajardo # (Auto) 1.05 H (0.11-0.59) K/uL Eos # (Auto) 0.01 (0-0.5) K/uL Baso # (Auto) 0.01 (0-0.2) K/uL Immature Gran # (Auto) 0.12 H (0.00-0.02) K/uL Platelet Estimate Decreased L (Normal) RBC Morphology PT 10.0 (9.0-12.0) Seconds INR 0.9 (0.9-1.1) APTT 22.2 (21.0-31.0) Seconds PTT Ratio 0.8 Sodium (136-145) mmol/L Potassium (3.5-5.1) mmol/L Chloride (98-107) mmol/L Carbon Dioxide (21-32) mmol/L Anion Gap (3-11) BUN (7-18) mg/dl Creatinine (0.6-1.2) mg/dl Est Cr Clr Drug Dosing ml/min Est GFR ( Amer) Est GFR (Non-Af Amer) BUN/Creatinine Ratio (10-20) Glucose (70-99) mg/dl Calcium (8.5-10.1) mg/dl Total Bilirubin (0.2-1) mg/dl AST (15-37) U/L ALT (12-78) U/L Alkaline Phosphatase (45-117) U/L Total Protein (6.4-8.2) gm/dl Albumin (3.4-5.0) gm/dl Globulin (2.5-4.0) gm/dl Albumin/Globulin Ratio (0.9-2) Blood Type A Positive Antibody Screen NEGATIVE 06/10/20 06/11/20 06/12/20 Range/Units 08:39 06:13 06:10 WBC 11.40 H 12.23 H (4.8-10.8) K/uL RBC 4.57 4.81 (4.2-5.4) M/uL Hgb 12.7 13.2 (12.0-16.0) g/dL Hct 38.5 39.8 (37-47) % MCV 84.2 82.7 (80-100) fL MCH 27.8 27.4 (25-34) pg MCHC 33.0 33.2 (32-36) g/dL RDW Std Deviation 44.4 42.8 (36.4-46.3) fL RDW Coeff of Lucy 14.3 14.2 (11.5-14.5) % Plt Count 89 L 81 L (130-400) K/uL MPV (7.4-10.4) fL Immature Gran % (Auto) 1.1 0.4 % Neut % (Auto) 59.8 68.5 % Lymph % (Auto) 29.9 23.1 % Fajardo % (Auto) 8.3 7.0 % Eos % (Auto) 0.8 0.9 % Baso % (Auto) 0.1 0.1 % Neut # (Auto) 6.82 H 8.37 H (1.4-6.5) K/uL Lymph # (Auto) 3.41 H 2.83 (1.2-3.4) K/uL Fajardo # (Auto) 0.95 H 0.86 H (0.11-0.59) K/uL Eos # (Auto) 0.09 0.11 (0-0.5) K/uL Baso # (Auto) 0.01 0.01 (0-0.2) K/uL Immature Gran # (Auto) 0.12 H 0.05 H (0.00-0.02) K/uL Platelet Estimate Decreased L Decreased L (Normal) RBC Morphology PT (9.0-12.0) Seconds INR (0.9-1.1) APTT (21.0-31.0) Seconds PTT Ratio Sodium 139 (136-145) mmol/L Potassium 3.5 (3.5-5.1) mmol/L Chloride 107 (98-107) mmol/L Carbon Dioxide 21 (21-32) mmol/L Anion Gap 11.0 (3-11) BUN 10 (7-18) mg/dl Creatinine 0.76 (0.6-1.2) mg/dl Est Cr Clr Drug Dosing 161.3 ml/min Est GFR ( Amer) 123.7 Est GFR (Non-Af Amer) 106.8 BUN/Creatinine Ratio 13.2 (10-20) Glucose 117 H (70-99) mg/dl Calcium 8.9 (8.5-10.1) mg/dl Total Bilirubin 0.3 (0.2-1) mg/dl AST 19 (15-37) U/L ALT 19 (12-78) U/L Alkaline Phosphatase 125 H (45-117) U/L Total Protein 5.9 L (6.4-8.2) gm/dl Albumin 2.5 L (3.4-5.0) gm/dl Globulin 3.4 (2.5-4.0) gm/dl Albumin/Globulin Ratio 0.7 L (0.9-2) Blood Type Antibody Screen 06/12/20 06/12/20 06/13/20 Range/Units 14:42 21:38 05:32 WBC 19.04 H 18.22 H 19.57 H (4.8-10.8) K/uL RBC 5.32 4.80 4.24 (4.2-5.4) M/uL Hgb 15.0 13.6 11.7 L (12.0-16.0) g/dL Hct 44.6 40.3 34.9 L (37-47) % MCV 83.8 84.0 82.3 (80-100) fL MCH 28.2 28.3 27.6 (25-34) pg MCHC 33.6 33.7 33.5 (32-36) g/dL RDW Std Deviation 43.4 43.0 42.5 (36.4-46.3) fL RDW Coeff of Lucy 14.1 14.0 14.2 (11.5-14.5) % Plt Count 90 L 91 L 95 L (130-400) K/uL MPV (7.4-10.4) fL Immature Gran % (Auto) 0.3 0.3 0.4 % Neut % (Auto) 93.3 88.3 78.2 % Lymph % (Auto) 5.4 6.1 14.7 % Fajardo % (Auto) 0.8 5.2 6.6 % Eos % (Auto) 0.1 0.0 0.1 % Baso % (Auto) 0.1 0.1 0.0 % Neut # (Auto) 17.78 H 16.11 H 15.32 H (1.4-6.5) K/uL Lymph # (Auto) 1.03 L 1.11 L 2.88 (1.2-3.4) K/uL Fajardo # (Auto) 0.15 0.94 H 1.29 H (0.11-0.59) K/uL Eos # (Auto) 0.01 0.00 0.01 (0-0.5) K/uL Baso # (Auto) 0.01 0.01 0.00 (0-0.2) K/uL Immature Gran # (Auto) 0.06 H 0.05 H 0.07 H (0.00-0.02) K/uL Platelet Estimate Decreased L Decreased L Decreased L (Normal) RBC Morphology Unremarkable PT (9.0-12.0) Seconds INR (0.9-1.1) APTT (21.0-31.0) Seconds PTT Ratio Sodium (136-145) mmol/L Potassium (3.5-5.1) mmol/L Chloride (98-107) mmol/L Carbon Dioxide (21-32) mmol/L Anion Gap (3-11) BUN (7-18) mg/dl Creatinine (0.6-1.2) mg/dl Est Cr Clr Drug Dosing ml/min Est GFR ( Amer) Est GFR (Non-Af Amer) BUN/Creatinine Ratio (10-20) Glucose (70-99) mg/dl Calcium (8.5-10.1) mg/dl Total Bilirubin (0.2-1) mg/dl AST (15-37) U/L ALT (12-78) U/L Alkaline Phosphatase (45-117) U/L Total Protein (6.4-8.2) gm/dl Albumin (3.4-5.0) gm/dl Globulin (2.5-4.0) gm/dl Albumin/Globulin Ratio (0.9-2) Blood Type Antibody Screen 06/14/20 Range/Units 06:40 WBC 11.12 H (4.8-10.8) K/uL RBC 3.84 L (4.2-5.4) M/uL Hgb 10.4 L (12.0-16.0) g/dL Hct 32.6 L (37-47) % MCV 84.9 (80-100) fL MCH 27.1 (25-34) pg MCHC 31.9 L (32-36) g/dL RDW Std Deviation 45.8 (36.4-46.3) fL RDW Coeff of Lucy 14.7 H (11.5-14.5) % Plt Count 77 L (130-400) K/uL MPV 13.7 H (7.4-10.4) fL Immature Gran % (Auto) 0.4 % Neut % (Auto) 69.5 % Lymph % (Auto) 19.3 % Fajardo % (Auto) 9.9 % Eos % (Auto) 0.8 % Baso % (Auto) 0.1 % Neut # (Auto) 7.72 H (1.4-6.5) K/uL Lymph # (Auto) 2.15 (1.2-3.4) K/uL Fajardo # (Auto) 1.10 H (0.11-0.59) K/uL Eos # (Auto) 0.09 (0-0.5) K/uL Baso # (Auto) 0.01 (0-0.2) K/uL Immature Gran # (Auto) 0.05 H (0.00-0.02) K/uL Platelet Estimate Decreased L (Normal) RBC Morphology Unremarkable PT (9.0-12.0) Seconds INR (0.9-1.1) APTT (21.0-31.0) Seconds PTT Ratio Sodium (136-145) mmol/L Potassium (3.5-5.1) mmol/L Chloride (98-107) mmol/L Carbon Dioxide (21-32) mmol/L Anion Gap (3-11) BUN (7-18) mg/dl Creatinine (0.6-1.2) mg/dl Est Cr Clr Drug Dosing ml/min Est GFR ( Amer) Est GFR (Non-Af Amer) BUN/Creatinine Ratio (10-20) Glucose (70-99) mg/dl Calcium (8.5-10.1) mg/dl Total Bilirubin (0.2-1) mg/dl AST (15-37) U/L ALT (12-78) U/L Alkaline Phosphatase (45-117) U/L Total Protein (6.4-8.2) gm/dl Albumin (3.4-5.0) gm/dl Globulin (2.5-4.0) gm/dl Albumin/Globulin Ratio (0.9-2) Blood Type Antibody Screen PE: General: Alert, orientedx3, NAD CVS: S1S2 RRR Lungs; CTAB Abd: soft, NT, ND, BS+, fundus firm, below Umbilicus Incision/ Dressing: Clean, dry, intact Perineum intact, Lochia rubra minimal Ext; NT, BL edema is better AP: 29 yo s/p C Section, pod# 4 VSS Afebrile doing well Continue routine postop care Encourage ambulation, PO intake All questions were answered Discussed when to call D/C home , f/u in office Results & Data ([facility]) Vital Signs (Past 12 Hours) Vital Signs Temp Pulse Resp BP 06/16/20 00:00 36.7 C 91 H 18 110/67
[2020-06-16] MEDS: AMOXICILLIN/CLAVULANATE 875 MG TAB PO SCH (09:57)
--- NOTE | 2020-06-24 01:58 | Discharge Summary (DS) ---
DETAILS OF ADMISSION: The patient is a 29-year-old G1, P0 at 39 weeks and 4 days of gestation, who was admitted for induction of labor at term due to morbid obesity, history of thrombocytopenia, chronic ITP. She was followed by hematology and status post 4 days of Decadron with increase in platelet numbers. She was admitted on 06/10/2020 for induction. Her cervix was closed. She received Cervidil and p.o. Cytotec, which did not put her in labor and I assumed her care on 06/11/2020, when her cervix was closed. Her platelets were 79,000 on the admission which came after 89,000 on the second day. She received more Cytotec and she was having contractions, unable to receive epidural due to low platelet numbers. Then she was started on Pitocin and then a Shabazz balloon was inserted which started to change her cervix. Pitocin was increased and then she was given IV steroids recommended by hematology. Her platelets came up and then she received epidural for pain. Despite adequate contractions and a long labor, she has not changed her cervix and head station was very high. Baby was in direct OP presentation. On 06/12/2020, when she declined to continue with Pitocin or induction, she decided for primary on induction day #3, she was taken to the OR. She had primary low transverse and delivered a viable male infant without any complications. See dictated op note for details. On postop period, she was doing well. Vital signs stable, afebrile. Her bleeding was minimal. Physical exam was unremarkable. Her lower extremityl swelling was improving. Her vital signs were stable, afebrile. Her H and H was stable at 11.7/34.9. Her platelets increased to 95. On postop day #2, the patient was doing well. Vital signs stable, afebrile. Urine output was adequate. She was tolerating regular diet, ambulating, and passing gas. Vital signs stable, afebrile. H&H is stable. Her dressing/ LAWRENCE dressing was intact. it would be kept for 7 days. On postop day #3, the patient was doing well. Vital signs stable, afebrile. Physical exam was unremarkable. Her pain was improving, passing gas, tolerating regular diet. She wanted to stay another night and on postop day #4, the patient was doing well. Pain was under control with oral medication. She was sent home with Percocet and plain Tylenol as needed for pain. Discharge instructions were given. Prescriptions were written. She is to be seen in the office in a week. All questions were answered. ARMINDA
== END 2020-06-16 11:00 | disposition home or self-care (01) | DRG 787 ==
LOC: 4S1 07:08 → 4S2 06-13 02:45

== ENCOUNTER 2023-01-15 05:33 | Inpatient (IN) ==
--- NOTE | 2023-01-08 13:58 | Anesthesiology Consultation ---
Date of Service January 08, 2023 Assessment & Plan (1) Encounter for pre-operative examination: - check CBC with diff STAT am DOS. - awaiting 01/14/23 [facility] heme/onc note. - Case discussed in detail with Dr. Ibrahim who advised repeat CBC with diff STAT am DOS in addition to planned 01/14/23 CBC with diff, advised nothing additional from his standpoint needed. - heme/onc recommendations 01/02/23 [facility]: "...ITP, has scheduled on 01/15/23. She will take decadron x4 days starting 01/10, then repeat CBCd, CMP prior to seeing Dr Baker 01/14. If platelet count is still low, Dr Baker would like her to receive privigen, 1g/kg (with adjusted weight would be 97.16g) on 01/14..." - hematology/oncology 12/05/22 [facility]: "...significant for the bipolar disorder, depression and lymphedema involving the lower extremity was initially seen by Dr. Decker and Britney for thrombocytopenia. She has history of mild thrombocytopenia since 2011...treated with Decadron before the delivery of her 1st baby in 05/2020. Now she is 33 weeks and expected date is on 01/15/2023. Baby is going well without any symptoms. Clinically patient is doing well without any new symptoms...chronic right lower extremity edema, since childhood. Frequent cellulitis involving the right lower extremity, no evidence of DVT noted in the Doppler evaluation done in the past-No evidence of thrombotic complications the past...chronic thrombocytopenia/ITP return to clinic for follow-up. She is scheduled for the on 01/15/2023. During her 1st she was treated with Decadron with improvement in her blood counts. Clinically she is doing well without any new symptoms of bleeding. Recent blood test revealed platelet counts of around 51,000. Overall her blood counts are stable. Usually for the minimum requirement for the platelet count should be above 50,000, however for epidural or spinal anesthesia often require a higher value, usually between 70,000-100,000. She had a response to the Decadron during the 1st . Because of the response in past, I will try Decadron again before her ..." - emergent 06/12/20 epidural. - COVID screening: Per fire control technician b on 01/08/2023: Travel screen negative, no known COVID-19 positive contacts or current COVID-19 related symptoms in past 2 weeks. To surgeon's discretion if preop COVID testing is needed. Chart Review Chart Review: Pending: Refer to Additional Notes / Consult section and Patient NOT seen in Pre Admission Testing History Surgery Operation Date: 01/15/23 07:30 Proposed Procedures p Repeat Section in LD - Duglas Greene MD Height/Weight Height: 5 ft 5 in Weight: 157.85 kg Allergies Allergy/AdvReac Type Severity Reaction Status Date / Time No Known Allergies Allergy Verified 01/08/23 13:11 Medications Home Medications Medication Instructions Recorded Confirmed Last Taken famotidine 20 mg tablet 20 mg PO QAM #30 tabs 06/14/20 01/08/23 Unknown vits no.124-ferrous fum 1 tab PO DAILY@08 #60 tabs 06/14/20 01/08/23 Unknown 27 mg iron-folic acid 800 mcg tablet ( Vitamin) albuterol sulfate 90 mcg/actuation 1 inh inhalation QID PRN sob 01/08/23 01/08/23 Unknown aerosol inhaler cyanocobalamin (vitamin B-12) 1,000 mcg PO QAM 01/08/23 01/08/23 Unknown 1,000 mcg tablet,extended release (Vitamin B-12 ER) dexamethasone 20 mg tablet 40 mg PO UD PRN upcoming 01/08/23 01/08/23 Unknown ferrous sulfate 325 mg (65 mg 325 mg PO QAM 01/08/23 01/08/23 Unknown iron) tablet sertraline 25 mg tablet (Zoloft) 25 mg PO QAM 01/08/23 01/08/23 Unknown Past Medical History Medical History (Updated 01/08/23 @ 13:51 by Barb Lynch PA-C) Asthma hx - rarely uses inhaler Cellulitis hx (2018) treated at [facility] for right cellulitis and IV Abx treatment Degenerative disc disease Heartburn during History of COVID-09 july 2022 - no symptoms. History of palpitations Fall 2021 -- cardiac workup at [facility] was negative -- r/t and stress. no current issues. Idiopathic thrombocytopenic purpura (ITP) follows with [facility] heme/onc, Decadron prior to planned per 12/13 note Morbid obesity with BMI of 50.0-59.9, adult Prediabetes hx of taking metformin to Past Family History Family History Mother Type 1 diabetes Hypertension Father Alive and well Other No family history of adverse response to anesthesia No pertinent family history Past Surgical History Surgical History H/O wisdom tooth extraction History of section Social History Smoking Status: Never smoker Do You Dip or Chew Tobacco: No Hx Alcohol Use: No alcohol intake frequency: other Hx Substance Use: No substance use type: does not use Testing Laboratory Results 01/02/2023 WBC: 11.6 H/H: 12/38 PLATELETS: 48 SODIUM: 138 POTASSIUM: 4 CHLORIDE: 105 CO2: 20 BUN: 8 CREATININE: 0.6 GLUCOSE: 95 Electrocardiogram Date: 08/15/22 NSR with sinus arrhythmia, rate 67 bpm Echocardiogram Date: 08/29/22 EF 60-64% No LV regional wall motion abnormalities No significant valvular disease Other Testing Event monitor 08/15/22 Patient had a min HR of 49 bpm, max HR of 187 bpm, and avg HR of 81 bpm. Predominant underlying rhythm was Sinus Rhythm. 1 run of Supraventricular Tachycardia occurred lasting 16 beats with a max rate of 187 bpm (avg 170 bpm). Isolated SVEs were rare (<1.0%), and no SVE Couplets or SVE Triplets were present. Isolated VEs were rare (<1.0%), VE Couplets were rare (<1.0%), and no VE Triplets were present. Ventricular Bigeminy and Trigeminy were present. Isolated run of supraventricular tachycardia without associated symptoms. Symptoms correlate with sinus rhythm and sensed ventricular ectopy.
[2023-01-15] MEDS ORDERED: SODIUM CHLORIDE 0.9% 250 ML IV PRN (05:39)
[2023-01-15] MEDS ORDERED: LACTATED RINGER'S 1,000 ML IV SCH (05:45)
[2023-01-15] MEDS ORDERED: CITRIC ACID/SODIUM CITRATE 15 ML UDC PO SCH (06:00)
[2023-01-15 06:34] LABS: Hematocrit (blood only) 36.8 % (37.0-47.0); Hemoglobin 12.5 g/dl (12.0-16.0); Mean Corpuscular Hemoglobin 27.7 pg (25.0-34.0); Mean Corpuscular Volume 81.4 fL (80.0-100.0); RDW Coefficient of Variation 14.3 % (11.5-14.5); RDW Standard Deviation 41.8 fL (36.4-46.3); Red Blood Count 4.52 M/uL (4.20-5.40); White Blood Count 6.84 K/ul (4.8-10.8)
[2023-01-15 07:12] LABS: Mean Platelet Volume 14.5 fL (9.4-12.4); Platelet Count 94 K/uL (130-400)
[2023-01-15 07:13] LABS: Basophils # (auto) 0.02 K/uL (0-0.2); Basophils % (auto) 0.3 %; Eosinophils # (auto) 0.07 K/uL (0-0.50); Immature Granulocytes # (auto) 0.05 K/uL (0.01-0.20); Immature Granulocytes % (auto) 0.7 %; Lymphocytes # (auto) 1.72 K/uL (1.2-3.4); Lymphocytes % (auto) 25.1 %; Monocytes # (auto) 0.56 K/uL (0.11-0.59); Monocytes % (auto) 8.2 %; Neutrophils # (auto) 4.42 K/uL (1.40-6.50); Neutrophils % (auto) 64.7 %
[2023-01-15] MEDS ORDERED: ALBUTEROL HFA 8 GM INHALER INH PRN (07:27)
--- NOTE | 2023-01-15 07:27 | History & Physical Bridge Note ---
Date of Service January 15, 2023 History & Physical Bridge Note I have examined the patient, reviewed the History & Physical and in the interval since the performance of the History & Physical I have noted the following changes of clinical significance: no changes noted She has received IV IG yesterday for Chronic ITP Platelets 94. [address] Ibrahim Proceed with Repeat Csection as scheduled
[2023-01-15] MEDS ORDERED: MoRPHine SULFATE PF 1 MG/ML 10 ML AMP/VIAL ONE (07:36)
[2023-01-15 08:45] LABS: Base Excess Cord Arterial Bld -3.7 mEq/L (-9-1.8); CO2 Cord Arterial Blood 64 mmHg (39.1-73.5); HCO3 Cord Arterial Blood 26 mmol/L (19.7-28.5); Oxygen Sat Cord Arterial Blood < 60.0 % (<60); PO2 Cord Arterial Blood 12 mmHg (4.1-31.7)
[2023-01-15] MEDS ORDERED: KETOROLAC 30 MG/ML VIAL ONE (08:49)
[2023-01-15] MEDS ORDERED: OXYTOCIN 10 UNITS/ML 10ML VIAL ONE (08:49)
[2023-01-15 08:57] LABS: pH Cord Arterial Blood 7.21 (7.1-7.38)
[2023-01-15] MEDS ORDERED: diphenhydrAMINE Capsule 25 MG CAP PO PRN (09:08)
[2023-01-15] MEDS ORDERED: BENZOCAINE 20% AER SPR 82.5 GM CAN EXT PRN (09:08)
[2023-01-15] MEDS ORDERED: MEPERIDINE HCL 50 MG/ML CARP IV PRN (09:08)
[2023-01-15] MEDS ORDERED: HYDROCORTISONE ACETATE 25 MG SUPP PR PRN (09:08)
[2023-01-15] MEDS ORDERED: MEASLES, MUMPS & RUBELLA VIRUS VIAL SQ ONE (09:08)
[2023-01-15] MEDS ORDERED: ONDANSETRON INJ 2 MG/ML 2 ML VIAL IV PRN ×2 (09:08→09:47)
[2023-01-15] MEDS ORDERED: SENNA 8.6 MG TAB PO PRN (09:08)
[2023-01-15] MEDS ORDERED: oxyCODONE/ACETAMINOPHEN 5mg/325mg TAB PO PRN (09:08)
[2023-01-15] MEDS ORDERED: DIPHTHERIA/TETANUS/PERTUSSIS 0.5mL SYR/VIAL (Age 7+yrs) IM ONE (09:08)
[2023-01-15] MEDS ORDERED: PROMETHAZINE HCL 25 MG in SODIUM CHLORIDE 0.9% 50 ML IV PRN (09:08)
[2023-01-15] MEDS ORDERED: MAGNESIUM HYDROXIDE SUSP 30 ML UDC PO PRN (09:08)
[2023-01-15] MEDS ORDERED: diphenhydrAMINE 50 MG/ML VIAL IV PRN ×2 (09:08→09:47)
[2023-01-15] MEDS ORDERED: ONDANSETRON INJ 2 MG/ML 2 ML VIAL ONE (09:10)
--- NOTE | 2023-01-15 09:12 | Post Operative Brief Note ---
Immediate Post Op Note v1 Date of Surgery January 15, 2023 Pre & Post Diagnosis Operation Date: 01/15/23 07:30 Pre-Op Diagnosis: 1. History of Post-Op Diagnosis: Same I identified the patient and participated in the time-out.: Yes Procedure Operation Date: 01/15/23 07:30 Actual Procedures p Section in LD; Repeat Lower Uterine Transverse Section for the of a live girl infant at 0811 (Bilateral) - Duglas Greene MD Surgeon Duglas Greene MD Piler KIMBERLY Rich Estimated Blood Loss 600 Findings Consistent with Post-Op Diagnosis Drains Shabazz Catheter (Shabazz catheter inserted without difficulty patent and draining clear yellow urine. ) Anesthesia Type Spinal Complications none
[2023-01-15] MEDS ORDERED: LACTATED RINGER'S 500 ML IV PRN (09:47)
[2023-01-15] MEDS ORDERED: NALOXONE HCL 0.08 MG in SYRINGE 1.8 ML IV PRN (09:47)
[2023-01-15] MEDS ORDERED: PROMETHAZINE HCL 6.25 MG in SODIUM CHLORIDE 0.9% 50 ML IV PRN (09:47)
[2023-01-15] MEDS ORDERED: NALBUPHINE HCL INJ 10 MG/ML AMP IV PRN (09:47)
[2023-01-15] MEDS ORDERED: MoRPHine SULFATE 2 MG/ML CARP IV PRN (09:47)
[2023-01-15] MEDS ORDERED: ePHEDrine sulfate 50 MG/ML AMP IV PRN (09:47)
[2023-01-15] MEDS ORDERED: HYDROmorphone INJ 0.5 MG/0.5 ML SYR IV PRN (09:47)
[2023-01-15] MEDS ORDERED: MoRPHine SULFATE PF 1 MG/ML 10 ML AMP/VIAL INT SPINAL ONE (09:47)
[2023-01-15] MEDS ORDERED: NALOXONE HCL 1 MG in SODIUM CHLORIDE 0.9% 1000ML 1,000 ML IV PRN (09:47)
[2023-01-15] MEDS ORDERED: NALOXONE HCL 0.4 MG/1 ML VIAL/CARP IV PRN (09:47)
[2023-01-15] MEDS ORDERED: MEPERIDINE HCL 25 MG/ML CARP/VIAL IV PRN (09:47)
--- NOTE | 2023-01-15 09:58 | Operative Report (OR) ---
DATE OF SURGERY: 01/15/2023. PREOPERATIVE DIAGNOSES: The patient is a 32-year-old G2, P1-0-0-1, at 39.5 weeks of gestation, history of prior section, declines TOLAC/, desires repeat section. Chronic ITP, s/p prednisone and IV Ig use POSTOPERATIVE DIAGNOSES: The patient is a 32-year-old G2, P1-0-0-1, at 39.5 weeks of gestation, history of prior section, declines TOLAC/, desires repeat section. Chronic ITP, s/p prednisone and IV Ig use PROCEDURE: Repeat low transverse with Pfannenstiel skin incision and delivery of a live infant at 8:11 a.m. SURGEON: Duglas Greene MD JOURNALISTS AND OTHER WRITERS: Blanche Lindsey PA-C ESTIMATED BLOOD LOSS: 600 mL. ANESTHESIA: Spinal. ANESTHESIOLOGIST: Dr. Ibrahim. COMPLICATIONS: None. DRAINS: Shabazz catheter drained 150 mL of clear urine. FINDINGS: The baby was a viable female infant delivered in cephalic presentation at 8:11 a.m. Apgars were 8/8. Weight is 4106 grams. There was a nuchal cord around the neck x1 Meconium stained amniotic fluid. Maternal findings: Normal uterus, fallopian tubes, and ovaries. DESCRIPTION OF PROCEDURE: The patient was taken to the operating room where spinal anesthesia was given without difficulty. She was placed in dorsal supine position with a leftward tilt. She was prepared and draped in the usual sterile fashion. A Pfannenstiel skin incision was made from the old incision site, carried through to the underlying layer of fascia with the Bovie. Fascia was incised in the midline and incision was extended laterally with the help of Wiggins scissors. Upper aspect of the fascial incision was grasped with two Calderon clamps, elevated, and underlying rectus muscles were dissected off sharply with Wiggins scissors. The rectus muscles were already opened in the midline. Peritoneum was identified, grasped with pickups, and entered sharply with Metzenbaum scissors and the peritoneal incision was extended superiorly and inferiorly with good visualization of the bladder and then Gibson abdominal retractor was placed to provide retraction during the procedure. The vesicouterine peritoneum was identified, grasped with pickups, and entered sharply with Metzenbaum scissors. Bladder flap was created digitally and bladder blade was inserted. Lower uterine segment was incised in transverse fashion. Incision was extended laterally with the help of bandage scissors. Membranes were ruptured and meconium stained fluid was obtained. There was a hand and cord presenting with the head. Those were pushed back gently and the baby's head was delivered without difficulty. Shoulders were delivered with minimal traction. There was a nuchal cord around the neck x1, which was reduced. The baby was dried, mouth and nose were suctioned. Cord was clamped x2 and cut and baby was handed off to the waiting pediatric team with Dr. Camarillo. Then cord blood was obtained. Placenta was delivered spontaneously as intact and complete. Uterus was exteriorized and cleared of all clots and debris. This uterine incision was repaired with 0 Vicryl in a running locked fashion. Second imbricating layer was placed with another 0 Vicryl in a running locked fashion. Excellent hemostasis was achieved. There was minimal oozing on the middle of the incision. It was controlled with [id number] stitch x1. Cul-de-sac was irrigated with warm normal saline and suctioned. Normal cul-de-sac. Normal fallopian tubes and ovaries were noted. Uterus was returned to the abdomen. Pelvis was irrigated with warm normal saline and suctioned. Incision was checked to be again hemostatic. Parietal peritoneum was reapproximated with 2-0 Vicryl in a running fashion. Rectus muscles were also reapproximated with the same suture in a running fashion. Excellent hemostasis was achieved. Rectus fascia was reapproximated with #1 Vicryl in a running fashion. Subcuticular fat tissue was brought together with 3-0 Vicryl in a running fashion and the skin was closed with 4-0 Monocryl in a subcuticular fashion. The patient's incision was covered with LAWRENCE dressing. The patient tolerated the procedure well. Sponge, lap, needle count was correct x3. She received 3 grams of cefazolin before surgery. She was taken to recovery room in stable condition. No complications happened and I was present during whole procedure. My facility assistant was needed for retraction, aid during delivery of , and hemostasis. Job ID: [id number] [facility]
[2023-01-15] MEDS ORDERED: NO NARCOTICS OR SEDATIVES SCH (10:00)
[2023-01-15] MEDS ORDERED: DC INTRASPINAL MORPHINE SCH (10:00)
[2023-01-15] MEDS ORDERED: SODIUM CHLORIDE 0.9% 1000ML 1,000 ML IV SCH (10:00)
[2023-01-15] MEDS: SERTRALINE HCL 50 MG TABLET PO SCH (10:00)
[2023-01-15] MEDS: LACTATED RINGER'S 1,000 ML IV SCH ×2 (11:30→19:43)
[2023-01-15] MEDS: PRENATAL VITAMIN 1 TAB PO SCH (11:35)
[2023-01-15] MEDS: CYANOCOBALAMIN (B-12) 500 MCG TABLET PO SCH (11:35)
[2023-01-15] MEDS: FERROUS SULFATE 325 MG TAB PO SCH (11:36)
[2023-01-15] MEDS: OXYTOCIN 20 UNITS in LACTATED RINGER'S 1,000 ML IV SCH ×2 (11:43→20:36)
--- NOTE | 2023-01-15 11:58 | Anesthesiology Progress Note ---
Date of Service January 15, 2023 Anesthesia Post Procedure Vital Signs Vital Signs: Temp Pulse Resp BP Pulse Ox 01/15/23 11:46 36.7 C 20 01/15/23 10:44 20 01/15/23 10:14 20 01/15/23 10:14 18 01/15/23 10:04 20 01/15/23 09:54 20 01/15/23 09:44 22 01/15/23 10:14 20 01/15/23 09:34 22 01/15/23 09:24 20 01/15/23 09:15 36.8 C 22 01/15/23 05:51 36.7 C 75 18 117/55 L 01/15/23 11:44 73 143/66 H 01/15/23 11:40 74 92 01/15/23 11:35 73 96 01/15/23 11:34 70 132/63 01/15/23 11:30 69 95 01/15/23 11:25 81 97 01/15/23 11:24 62 124/60 01/15/23 11:20 61 96 01/15/23 11:15 65 96 01/15/23 11:14 58 L 134/60 01/15/23 11:10 62 97 01/15/23 11:05 60 96 01/15/23 11:04 65 137/62 01/15/23 11:00 65 97 01/15/23 10:55 76 97 01/15/23 10:54 63 136/60 01/15/23 10:50 64 97 01/15/23 10:48 64 138/61 01/15/23 10:45 69 97 01/15/23 10:40 78 97 01/15/23 10:35 67 97 01/15/23 10:34 69 113/76 01/15/23 10:30 67 97 01/15/23 10:25 74 109/63 97 01/15/23 10:20 66 99 01/15/23 10:15 67 100 01/15/23 10:14 72 148/70 H 01/15/23 10:10 65 98 01/15/23 10:05 59 L 99 01/15/23 10:04 57 L 151/74 H 01/15/23 10:00 58 L 97 01/15/23 09:55 55 L 104/51 L 99 01/15/23 09:50 55 L 99 01/15/23 09:45 55 L 99 01/15/23 09:44 59 L 141/69 H 01/15/23 09:40 56 L 100 01/15/23 09:35 55 L 99 01/15/23 09:34 61 142/70 H 01/15/23 09:33 66 91 01/15/23 09:30 61 98 01/15/23 09:25 54 L 99 01/15/23 09:24 55 L 140/66 01/15/23 09:20 52 L 99 01/15/23 09:15 54 L 97 01/15/23 09:13 54 L 143/68 H 01/15/23 07:22 62 98 01/15/23 07:17 62 97 01/15/23 07:12 64 97 01/15/23 07:07 66 98 01/15/23 05:48 36.7 C 75 18 117/55 L Pain Intensity Lower Abdomen: Pain Intensity: 4 Transfer of Care Handoff Completed per policy Notes Mental Status: alert / awake / arousable Patient Amnestic to Procedure: Yes Nausea / Vomiting: adequately controlled Pain: adequately controlled Airway Patency, RR, SpO2: stable & adequate BP & HR: stable & adequate Hydration State: stable & adequate Neuraxial Anesthesia: was administered and sensory block is resolving Anesthetic Complications: no major complications apparent and Pt Satisfied with anesthetic care
[2023-01-15] MEDS: ceFAZolin 2000MG 2,000 MG/15 ML SYR IV SCH ×2 (14:27→21:23)
[2023-01-15] MEDS: SIMETHICONE 80 MG CHEW PO SCH ×3 (14:27→21:23)
[2023-01-15] MEDS: KETOROLAC 30 MG/ML VIAL IV PRN (20:32)
[2023-01-15] MEDS: DOCUSATE SODIUM 100 MG CAP PO SCH (21:23)
[2023-01-16] MEDS: KETOROLAC 30 MG/ML VIAL IV PRN (02:41)
[2023-01-16] MEDS ORDERED: MEPERIDINE HCL 50 MG/ML CARP IV PRN (03:47)
[2023-01-16] MEDS: ceFAZolin 2000MG 2,000 MG/15 ML SYR IV SCH (05:55)
[2023-01-16 06:51] LABS: Basophils # (auto) 0.03 K/uL (0-0.2); Basophils % (auto) 0.4 %; Eosinophils # (auto) 0.07 K/uL (0-0.50); Eosinophils % (auto) 0.9 %; Hematocrit (blood only) 29.5 % (37.0-47.0); Hemoglobin 9.9 g/dl (12.0-16.0); Immature Granulocytes # (auto) 0.04 K/uL (0.01-0.20); Immature Granulocytes % (auto) 0.5 %; Lymphocytes # (auto) 2.02 K/uL (1.2-3.4); Lymphocytes % (auto) 25.8 %; Mean Corpuscular Hemoglobin 27.3 pg (25.0-34.0); Mean Corpuscular Hgb Conc 33.6 g/dL (32.0-36.0); Mean Corpuscular Volume 81.3 fL (80.0-100.0); Mean Platelet Volume 13.9 fL (9.4-12.4); Monocytes # (auto) 0.57 K/uL (0.11-0.59); Monocytes % (auto) 7.3 %; Neutrophils # (auto) 5.11 K/uL (1.40-6.50); Neutrophils % (auto) 65.1 %; Platelet Count 100 K/uL (130-400); RDW Coefficient of Variation 14.4 % (11.5-14.5); RDW Standard Deviation 42.4 fL (36.4-46.3); Red Blood Count 3.63 M/uL (4.20-5.40); White Blood Count 7.84 K/ul (4.8-10.8)
[2023-01-16] MEDS ORDERED: FERROUS SULFATE 325 MG TAB PO SCH (08:00)
[2023-01-16] MEDS ORDERED: PRENATAL VITAMIN 1 TAB PO SCH (08:00)
[2023-01-16] MEDS: IBUPROFEN 600 MG TAB PO PRN ×4 (08:46→21:16)
[2023-01-16] MEDS: DOCUSATE SODIUM 100 MG CAP PO SCH ×2 (08:46→21:17)
[2023-01-16] MEDS: oxyCODONE/ACETAMINOPHEN 5mg/325mg TAB PO PRN ×4 (08:46→21:17)
[2023-01-16] MEDS: SIMETHICONE 80 MG CHEW PO SCH ×4 (08:46→21:17)
[2023-01-16] MEDS: PRENATAL VITAMIN 1 TAB PO SCH (08:46)
[2023-01-16] MEDS: SERTRALINE HCL 50 MG TABLET PO SCH (08:47)
[2023-01-16] MEDS: CYANOCOBALAMIN (B-12) 500 MCG TABLET PO SCH (08:47)
[2023-01-16] MEDS: FERROUS SULFATE 325 MG TAB PO SCH (08:49)
--- NOTE | 2023-01-16 09:41 | Obstetrical Progress Note ---
Date of Service January 16, 2023 Subjective Ambulation: ambulating normally Voiding: no voiding problems Passing Gas:: Yes Diet Tolerance:: regular diet Feeding Type:: breast feeding Current Pain Level(1-10): 0 doing well Physical Exam Constitutional WD/WN, vitals as above Gastrointestinal (Abdomen) Inspection/Auscultation: abdomen normal to inspection Musculoskeletal Extremities: extremities normal to inspection no edema. neg Boogie's Skin no rashes, warm and dry Neurologic patellar DTR's 2+ bilat, sensation intact Psychiatric A+Ox3, euthymic affect Results & Data Vital Signs (Past 12 Hours) Vital Signs Temp Pulse Resp BP Pulse Ox Pulse Ox O2 Del Method 01/16/23 04:30 36.8 C 78 18 136/80 98 Room Air 01/16/23 03:45 18 96 01/16/23 02:58 20 97 01/16/23 02:00 18 95 01/16/23 00:15 98 01/16/23 00:15 Room Air 01/16/23 00:15 36.8 C 64 20 121/78 98 Room Air 01/16/23 00:56 20 98 01/16/23 00:00 18 96 01/15/23 23:00 18 97 01/15/23 22:09 18 100 O2 Del Method 01/16/23 04:30 01/16/23 03:45 01/16/23 02:58 01/16/23 02:00 01/16/23 00:15 Room Air 01/16/23 00:15 01/16/23 00:15 01/16/23 00:56 01/16/23 00:00 01/15/23 23:00 01/15/23 22:09 Laboratory Results 01/15/23 01/15/23 01/15/23 05:47 05:47 08:11 WBC 6.84 RBC 4.52 Hgb 12.5 Hct 36.8 L MCV 81.4 MCH 27.7 MCHC 34.0 RDW Std Deviation 41.8 RDW Coeff of Lucy 14.3 Plt Count 94 L MPV 14.5 H Immature Gran % (Auto) 0.7 Neut % (Auto) 64.7 Lymph % (Auto) 25.1 [place] % (Auto) 8.2 Eos % (Auto) 1.0 Baso % (Auto) 0.3 Neut # (Auto) 4.42 Lymph # (Auto) 1.72 [place] # (Auto) 0.56 Eos # (Auto) 0.07 Baso # (Auto) 0.02 Immature Gran # (Auto) 0.05 Cord ABG pH 7.21 Cord ABG pCO2 64 Cord ABG pO2 12 Cord ABG HCO3 26 Cord ABG Base Excess -3.7 Cord ABG O2 Sat < 60.0 Cord VBG pH Cord VBG pCO2 Cord VBG pO2 Cord VBG HCO3 Cord VBG Base Excess Cord VBG O2 Sat Blood Gas Comments PIZANO SARS-CoV-2, RNA, NAAT Blood Type A Positive Antibody Screen NEGATIVE Crossmatch See Detail 01/15/23 01/15/23 01/16/23 08:11 Unknown 05:58 WBC 7.84 RBC 3.63 L Hgb 9.9 L Hct 29.5 L MCV 81.3 MCH 27.3 MCHC 33.6 RDW Std Deviation 42.4 RDW Coeff of Lucy 14.4 Plt Count 100 L MPV 13.9 H Immature Gran % (Auto) 0.5 Neut % (Auto) 65.1 Lymph % (Auto) 25.8 [place] % (Auto) 7.3 Eos % (Auto) 0.9 Baso % (Auto) 0.4 Neut # (Auto) 5.11 Lymph # (Auto) 2.02 [place] # (Auto) 0.57 Eos # (Auto) 0.07 Baso # (Auto) 0.03 Immature Gran # (Auto) 0.04 Cord ABG pH Cord ABG pCO2 Cord ABG pO2 Cord ABG HCO3 Cord ABG Base Excess Cord ABG O2 Sat Cord VBG pH TNP Cord VBG pCO2 TNP Cord VBG pO2 TNP Cord VBG HCO3 TNP Cord VBG Base Excess TNP Cord VBG O2 Sat TNP Blood Gas Comments PIZANO SARS-CoV-2, RNA, NAAT NEGATIVE Blood Type Antibody Screen Crossmatch
[2023-01-16] MEDS ORDERED: bisacodyL 5 MG TABEC PO SCH (20:00)
[2023-01-17] MEDS: IBUPROFEN 600 MG TAB PO PRN ×3 (01:34→10:09)
[2023-01-17] MEDS: oxyCODONE/ACETAMINOPHEN 5mg/325mg TAB PO PRN ×3 (01:34→10:08)
[2023-01-17] MEDS: SIMETHICONE 80 MG CHEW PO SCH (08:18)
[2023-01-17] MEDS: DOCUSATE SODIUM 100 MG CAP PO SCH (08:18)
[2023-01-17] MEDS: FERROUS SULFATE 325 MG TAB PO SCH (08:18)
[2023-01-17] MEDS: SERTRALINE HCL 50 MG TABLET PO SCH (08:19)
[2023-01-17] MEDS: CYANOCOBALAMIN (B-12) 500 MCG TABLET PO SCH (08:19)
[2023-01-17] MEDS: PRENATAL VITAMIN 1 TAB PO SCH (08:19)
--- NOTE | 2023-01-17 08:36 | Obstetrical Progress Note ---
Date of Service January 17, 2023 Assessment & Plan Admission and Anticipated Discharge Date Admission Date: January 15, 2023 Subjective Patient is seen and examined. She feels well, no complaints. Pain is under control with oral meds. Ambulating without dizziness. Voiding without difficulty Tolerating regular diet with out N&V Flatus + BM neg Bleeding is minimal No fever/ chills/ CP/ SOB/ N&V/ Leg pain Breast feeding without problems Vital Signs Temp Pulse Resp BP Pulse Ox O2 Del Method 01/16/23 23:50 36.6 C 83 17 103/70 98 Room Air 01/16/23 21:15 Room Air 01/16/23 21:15 36.8 C 88 16 126/78 98 Room Air Lab Results 01/15/23 01/15/23 01/15/23 Range/Units 05:47 05:47 08:11 WBC 6.84 (4.8-10.8) K/ul RBC 4.52 (4.20-5.40) M/uL Hgb 12.5 (12.0-16.0) g/dl Hct 36.8 L (37.0-47.0) % MCV 81.4 (80.0-100.0) fL MCH 27.7 (25.0-34.0) pg MCHC 34.0 (32.0-36.0) g/dL RDW Std Deviation 41.8 (36.4-46.3) fL RDW Coeff of Lucy 14.3 (11.5-14.5) % Plt Count 94 L (130-400) K/uL MPV 14.5 H (9.4-12.4) fL Immature Gran % (Auto) 0.7 % Neut % (Auto) 64.7 % Lymph % (Auto) 25.1 % [place] % (Auto) 8.2 % Eos % (Auto) 1.0 % Baso % (Auto) 0.3 % Neut # (Auto) 4.42 (1.40-6.50) K/uL Lymph # (Auto) 1.72 (1.2-3.4) K/uL [place] # (Auto) 0.56 (0.11-0.59) K/uL Eos # (Auto) 0.07 (0-0.50) K/uL Baso # (Auto) 0.02 (0-0.2) K/uL Immature Gran # (Auto) 0.05 (0.01-0.20) K/uL Cord ABG pH 7.21 (7.1-7.38) Cord ABG pCO2 64 (39.1-73.5) mmHg Cord ABG pO2 12 (4.1-31.7) mmHg Cord ABG HCO3 26 (19.7-28.5) mmol/L Cord ABG Base Excess -3.7 (-9-1.8) mEq/L Cord ABG O2 Sat < 60.0 (<60) % Cord VBG pH Cord VBG pCO2 Cord VBG pO2 Cord VBG HCO3 Cord VBG Base Excess Cord VBG O2 Sat Blood Gas Comments PIZ[place]O SARS-CoV-2, RNA, NAAT (NEGATIVE) Blood Type A Positive Antibody Screen NEGATIVE Crossmatch See Detail 01/15/23 01/15/23 01/16/23 Range/Units 08:11 Unknown 05:58 WBC 7.84 (4.8-10.8) K/ul RBC 3.63 L (4.20-5.40) M/uL Hgb 9.9 L (12.0-16.0) g/dl Hct 29.5 L (37.0-47.0) % MCV 81.3 (80.0-100.0) fL MCH 27.3 (25.0-34.0) pg MCHC 33.6 (32.0-36.0) g/dL RDW Std Deviation 42.4 (36.4-46.3) fL RDW Coeff of Lucy 14.4 (11.5-14.5) % Plt Count 100 L (130-400) K/uL MPV 13.9 H (9.4-12.4) fL Immature Gran % (Auto) 0.5 % Neut % (Auto) 65.1 % Lymph % (Auto) 25.8 % [place] % (Auto) 7.3 % Eos % (Auto) 0.9 % Baso % (Auto) 0.4 % Neut # (Auto) 5.11 (1.40-6.50) K/uL Lymph # (Auto) 2.02 (1.2-3.4) K/uL [place] # (Auto) 0.57 (0.11-0.59) K/uL Eos # (Auto) 0.07 (0-0.50) K/uL Baso # (Auto) 0.03 (0-0.2) K/uL Immature Gran # (Auto) 0.04 (0.01-0.20) K/uL Cord ABG pH (7.1-7.38) Cord ABG pCO2 (39.1-73.5) mmHg Cord ABG pO2 (4.1-31.7) mmHg Cord ABG HCO3 (19.7-28.5) mmol/L Cord ABG Base Excess (-9-1.8) mEq/L Cord ABG O2 Sat (<60) % Cord VBG pH TNP Cord VBG pCO2 TNP Cord VBG pO2 TNP Cord VBG HCO3 TNP Cord VBG Base Excess TNP Cord VBG O2 Sat TNP Blood Gas Comments PIZ[place]O SARS-CoV-2, RNA, NAAT NEGATIVE (NEGATIVE) Blood Type Antibody Screen Crossmatch 01/17/23 Range/Units 07:20 WBC (4.8-10.8) K/ul RBC (4.20-5.40) M/uL Hgb 10.0 L (12.0-16.0) g/dl Hct 30.0 L (37.0-47.0) % MCV (80.0-100.0) fL MCH (25.0-34.0) pg MCHC (32.0-36.0) g/dL RDW Std Deviation (36.4-46.3) fL RDW Coeff of Lucy (11.5-14.5) % Plt Count (130-400) K/uL MPV (9.4-12.4) fL Immature Gran % (Auto) % Neut % (Auto) % Lymph % (Auto) % [place] % (Auto) % Eos % (Auto) % Baso % (Auto) % Neut # (Auto) (1.40-6.50) K/uL Lymph # (Auto) (1.2-3.4) K/uL [place] # (Auto) (0.11-0.59) K/uL Eos # (Auto) (0-0.50) K/uL Baso # (Auto) (0-0.2) K/uL Immature Gran # (Auto) (0.01-0.20) K/uL Cord ABG pH (7.1-7.38) Cord ABG pCO2 (39.1-73.5) mmHg Cord ABG pO2 (4.1-31.7) mmHg Cord ABG HCO3 (19.7-28.5) mmol/L Cord ABG Base Excess (-9-1.8) mEq/L Cord ABG O2 Sat (<60) % Cord VBG pH Cord VBG pCO2 Cord VBG pO2 Cord VBG HCO3 Cord VBG Base Excess Cord VBG O2 Sat Blood Gas Comments SARS-CoV-2, RNA, NAAT (NEGATIVE) Blood Type Antibody Screen Crossmatch PE: General: Alert, orientedx3, NAD CVS: S1S2 RRR Lungs; CTAB Abd: soft, NT, ND, BS+, fundus firm, below Umbilicus Incision/ [place] dressing: Clean, dry, intact Perineum intact, Lochia rubra minimal Ext; NT, no edema AP: 32 yo s/p C Section, pod# 2 VSS Afebrile doing well Continue routine postop care Encourage ambulation, PO intake All questions were answered D/C home if patient desires today Discussed when to call Results & Data Vital Signs (Past 12 Hours) Vital Signs Temp Pulse Resp BP Pulse Ox O2 Del Method 01/16/23 23:50 36.6 C 83 17 103/70 98 Room Air 01/16/23 21:15 Room Air 01/16/23 21:15 36.8 C 88 16 126/78 98 Room Air
[2023-01-17] MEDS ORDERED: bisacodyL 10 MG SUPP PR PRN (09:08)
--- NOTE | 2023-01-31 10:46 | Discharge Summary (DS) ---
DATE OF ADMISSION: 01/15/2023 DATE OF DISCHARGE: 01/17/2023 DETAILS OF ADMISSION: The patient is a 32-year-old G2, P1-0-0-1, at 39 weeks and 5 days of gestation , who has a history of prior . She declined TOLAC/. She desires repeat . She was admitted on 01/15/2023 for scheduled repeat . She has a history of chronic ITP and she used IVIG the day before and prednisone by hematology. She was taken to the OR for a scheduled repe at and delivered a viable female infant at 8:11 a.m. Her surgery was uncomplicated, see di ctated op note for details. In postop period, the patient was doing well, vital signs stable, afebri le, and urine output was adequate. On postop day #1, the patient was doing well, vital signs stable, and afebrile. Her postop H and H was 9.9/29.5. Her incision dressing was clean, dry, and intact. She was advanced to regular diet, she ambulated, and she was her baby without problems. On postop day #2, the patient was doing well, vital signs stable, and afebrile. She was eating reg ular diet, passing gas, voiding without difficulty, ambulating without dizziness, and w ithout problems. Her repeat H and H was 10/30. Her physical exam was unremarkable. Incision dressi ng was clean, dry, and intact. Her extremities were nontender and no edema. Her bleeding was minima l. She was discharged home on postoperative day #2. Discharge instructions were given. Prescriptio ns were written for pain. She is to be seen in the office in a week. Job ID: [id number]
== END 2023-01-17 13:20 | disposition home or self-care (01) | DRG 787 ==
LOC: 4S1 05:33 → EDSTATUS 07:30 → 4E2 12:10